=== PATIENT | female | born 1975 | race Caucasian/White ===

== ENCOUNTER 2017-03-19 09:37 | Emergency (ER) | payer OTHER ==
[~2017-03-19] VITALS: Ht 170.2 cm; Wt 70.1 kg
[~2017-03-19 09:37] MED LIST: OMEP40CA41 PO; QUET-205 PO; VENL100T2 PO
[2017-03-19 09:40] VITALS: TEMP 36.6; Ht 170.2 cm; Wt 70.1 kg
[2017-03-19] MEDS ORDERED: PROCHLORPERAZINE 5 MG/ML 2 ML VIAL IV STA (09:51)
[2017-03-19] MEDS ORDERED: DiphenhydrAMINE HCL 50 MG/ML VIAL IV STA (09:51)
[2017-03-19] MEDS ORDERED: SODIUM CHLORIDE 0.9% 1000ML 1,000 ML IV STA (09:51)
[2017-03-19] MEDS ORDERED: KETOROLAC TROMETHAMINE 30 MG/ML VIAL IV STA (09:51)
--- NOTE | 2017-03-19 09:56 | EMERGENCY ROOM VISIT NOTE ---
History Report prepared by Colin: Kaelyn Oneal Under the Supervision of: Dr. Andrei Mathur M.D. First contact with patient: 09:46 Chief Complaint: GI ASSESSMENT Stated Complaint: POSSIBLE BOWEL OBSTRUCTION, MIGRAINE History of Present Illness The patient is a 41 year old female who presents to the Emergency Room with complaints of persistent abdominal pain that began two weeks ago. She currently rates her discomfort as a 7/10 in severity. The patient additionally notes abdominal distension, abdominal bloating, and nausea with her symptoms. She states that this has happened in the past, but denies any specific cause for her flair ups. The patient states that she has not had a significant bowel movement in several weeks. She notes epigastric pain with her symptoms today. The patient states that a few days ago she developed a headache, noting that she rarely gets headaches. She denies taking anything for her pain today. The patient states that she consulted her PCP today and was told to come to the emergency department for further work up. She additionally notes that over the past several weeks she had walking pneumonia and was on 2 rounds of steroids. The patient states that gluten can sometimes cause her symptoms, noting that she has been under a gluten free diet. She states that she has a history of a cholecystectomy. The patient denies any fever. Source of History: patient Onset: two weeks ago Position: abdomen Symptom Intensity: 7/10 Timing: other (persistent) Modifying Factors (Worsening): other (gluten) Associated Symptoms: + headache, + nausea, No fevers Note: Associated symptoms: abdominal distension, abdominal bloating Review of Systems See HPI for pertinent positives & negatives. A total of 10 systems reviewed and were otherwise negative. Past Medical & Surgical Medical Problems: (1) Acute Cholecystitis (2) Bipolar Disorder, Unspecified (3) Ca In Situ Cervix Uteri (4) Cervical High Risk Human Papillomavirus (Hpv) Dna Test Pos (5) Cholecystectomy (6) Migraine Unspecified W/O Intract Mgrn W/O Status Migrainosus (7) Pneumonia, Organism Nos Family History No significant family history Social History Smoking Status: Never Smoker Alcohol Use: none Drug Use: none Marital Status: Housing Status: lives with family Occupation Status: employed Current/Historical Medications Scheduled Omeprazole (Prilosec), 40 MG PO DAILY Quetiapine Fumarate (Seroquel), 200 MG PO HS Venlafaxine Hcl (Effexor), 150 MG PO DAILY Allergies Coded Allergies: Hydromorphone (Verified Allergy, Severe, SHOCK.ITCHING, 09/19/16) Morphine (Verified Allergy, Intermediate, HIVES-CAN TAKE TYL #3 W/O RXN, 09/19/16) Nitrofurantoin (Verified Allergy, Unknown, MACROBID, 09/19/16) Sulfa Drugs (Verified Adverse Reaction, Mild, GI INTOLERANCE, 09/19/16) Physical Exam Vital Signs Date Time Temp Pulse Resp B/P Pulse Ox O2 Delivery O2 Flow Rate FiO2 03/19/17 11:23 83 109/72 99 03/19/17 09:40 36.6 94 18 144/100 98 Room Air Physical Exam GENERAL: Patient is well appearing and in mild distress. HEENT: No acute trauma, normocephalic atraumatic, mucous membranes moist, no nasal congestion, no scleral icterus. NECK: No stridor, no adenopathy, no meningismus, trachea is midline. LUNGS: No dyspnea. Clear to auscultation and equal bilaterally. No wheeze, no rhonchi. HEART: Regular rate and rhythm. No murmurs, rubs, gallops appreciated. ABDOMEN: Variably reproducible abdominal pain. Soft, bowel sounds positive, no masses appreciated, no peritonitis. BACK: No midline tenderness, no CVA tenderness EXTREMITIES: Normal motion all extremities, no cyanosis, no edema. NEUROLOGIC: Alert and oriented, no acute motor or sensory deficits, no focal weakness, cranial nerves grossly intact. SKIN: No rash, no jaundice, no diaphoresis. Medical Decision & Procedures ER Provider Diagnostic Interpretation: X ray results are stated below per my interpretation and the radiologist's interpretation. ABDOMEN 2VIEW W/PA CHEST RTN CLINICAL HISTORY: 2 weeks abdominal distension and discomfort COMPARISON STUDY: Chest x-ray dated 09/19/2016 FINDINGS: The erect chest reveals no free intraperitoneal air. There is no focal pulmonary consolidation. Erect and supine views the abdomen reveal surgical clips within the right upper quadrant consistent with a prior cholecystectomy. An IUD is visualized in the pelvis. There are no transition zones indicate bowel obstruction. There are scattered nonspecific air-fluid levels. IMPRESSION: No evidence of bowel obstruction. No evidence of free air. Electronically signed by: Kelvin Fajardo M.D. 03/19/2017 10:55 AM Dictated Date/Time: 03/19/2017 10:54 AM Laboratory Results 03/19/17 09:50 Red Blood Count 4.77, Mean Corpuscular Volume 91.0, Mean Corpuscular Hemoglobin 30.4, Mean Corpuscular Hemoglobin Concent 33.4, Mean Platelet Volume 10.3, Neutrophils (%) (Auto) 48.3, Lymphocytes (%) (Auto) 41.3, Monocytes (%) (Auto) 7.4, Eosinophils (%) (Auto) 2.3, Basophils (%) (Auto) 0.2, Neutrophils # (Auto) 4.29, Lymphocytes # (Auto) 3.66, Monocytes # (Auto) 0.66, Eosinophils # (Auto) 0.20, Basophils # (Auto) 0.02 03/19/17 09:50 Test 03/19/17 09:50 White Blood Count 8.87 K/uL (4.8-10.8) Red Blood Count 4.77 M/uL (4.2-5.4) Hemoglobin 14.5 g/dL (12.0-16.0) Hematocrit 43.4 % (37-47) Mean Corpuscular Volume 91.0 fL (80-100) Mean Corpuscular Hemoglobin 30.4 pg (25-34) Mean Corpuscular Hemoglobin Concent 33.4 g/dl (32-36) Platelet Count 212 K/uL (130-400) Mean Platelet Volume 10.3 fL (7.4-10.4) Neutrophils (%) (Auto) 48.3 % Lymphocytes (%) (Auto) 41.3 % Monocytes (%) (Auto) 7.4 % Eosinophils (%) (Auto) 2.3 % Basophils (%) (Auto) 0.2 % Neutrophils # (Auto) 4.29 K/uL (1.4-6.5) Lymphocytes # (Auto) 3.66 K/uL (1.2-3.4) Monocytes # (Auto) 0.66 K/uL (0.11-0.59) Eosinophils # (Auto) 0.20 K/uL (0-0.5) Basophils # (Auto) 0.02 K/uL (0-0.2) RDW Standard Deviation 47.5 fL (36.4-46.3) RDW Coefficient of Variation 14.2 % (11.5-14.5) Immature Granulocyte % (Auto) 0.5 % Immature Granulocyte # (Auto) 0.04 K/uL (0.00-0.02) Urine Color YELLOW Urine Appearance CLEAR (CLEAR) Urine pH 5.0 (4.5-7.5) Urine Specific [place] 1.011 (1.000-1.030) Urine Protein NEG (NEG) Urine Glucose (UA) NEG (NEG) Urine Ketones NEG (NEG) Urine Occult Blood 2+ (NEG) Urine Nitrite NEG (NEG) Urine Bilirubin NEG (NEG) Urine Urobilinogen NEG (NEG) Urine Leukocyte Esterase NEG (NEG) Urine WBC (Auto) 1-5 /hpf (0-5) Urine RBC (Auto) 0-4 /hpf (0-4) Urine Hyaline Casts (Auto) 1-5 /lpf (0-5) Urine Epithelial Cells (Auto) 20-30 /lpf (0-5) Urine Bacteria (Auto) NEG (NEG) Urine Test NEG (NEG) Anion Gap 7.0 mmol/L (3-11) Est Creatinine Clear Calc Drug Dose 88.7 ml/min Estimated GFR () 103.7 Estimated GFR (Non- 89.5 BUN/Creatinine Ratio 12.9 (10-20) Calcium Level 8.5 mg/dl (8.5-10.1) Total Bilirubin 0.6 mg/dl (0.2-1) Direct Bilirubin 0.1 mg/dl (0-0.2) Aspartate Amino Transf (AST/SGOT) 22 U/L (15-37) Alanine Aminotransferase (ALT/SGPT) 42 U/L (12-78) Alkaline Phosphatase 55 U/L (45-117) Troponin I < 0.015 ng/ml (0-0.045) C-Reactive Protein < 0.29 mg/dl (0-0.29) Total Protein 7.1 gm/dl (6.4-8.2) Albumin 3.8 gm/dl (3.4-5.0) Lipase 146 U/L (73-393) Laboratory results as reviewed by me. Medications Administered Medications (Trade) Dose Ordered Sig/Carmela Route Start Time Stop Time Status Last Admin Dose Admin Ketorolac Tromethamine (Toradol Inj) 30 mg NOW STAT IV 03/19/17 09:51 03/19/17 09:53 DC 4/20/17 10:16 30 MG Prochlorperazine Edisylate (Compazine Inj) 10 mg NOW STAT IV 03/19/17 09:51 03/19/17 09:53 DC 03/19/17 10:16 10 MG Diphenhydramine HCl 50 mg 50 mg NOW STAT IV 03/19/17 09:51 03/19/17 09:53 DC 03/19/17 10:16 50 MG Sodium Chloride (Nss 1000ml) 1,000 ml @ 999 mls/hr Q1H1M STAT IV 03/19/17 09:51 03/19/17 10:51 DC 03/19/17 10:16 999 MLS/HR Magnesium Citrate (Citrate Of Magnesia Soln) 296 ml NOW ONCE PO 03/19/17 11:15 03/19/17 11:16 DC 03/19/17 11:22 296 ML ECG Indication: abdominal pain Rate (beats per minute): 89 Rhythm: normal sinus Findings: no acute ischemic change, no ectopy ED Course 0947: The patient was evaluated in room B12B. A complete history and physical exam was performed. 0951: Ordered Sodium Chloride 1000 ml @ 999 mls/hr IV, Benadryl Inj 50 mg IV, Compazine Inj 10 mg IV, Toradol Inj 30 mg IV. 1109: I reevaluated the patient and she is doing better. I discussed the risks and benefits of magnesium citrate and she would like to try it. I discussed all the exam findings with her and I discussed the treatment plan. She verbalized complete understanding and agreement. She is ready to go home. 1115: Ordered Magnesium Citrate 296 ml PO. Medical Decision Differential: Cholecystitis, Gallbladder disfunction, Hepatic Disfunction, Gastritis/PUD, Pancreatitis, ACS, Aortic Pathology, amongst other pathologies entertained. Differential: Headache, Migraine, Cluster Headache, Seizure, Meningitis, Sinusitis, CO exposure, ICH/SAH, Infectious, Tumor, Sinus Thrombosis, Arterial Dissection, amongst other pathologies entertained. 41 yr old female arrives with dual complaints of headache and abdominal discomfort. Headache: 3 days, gradually worsening. No meningitis by exam. No encephalitis. Admits history of headaches. No neuro deficits nor fevers. Exam benign. No recent trauma. Resolved with above medications. Abdo: Discomfort. Minimal bowel movements last week. No vomiting, no fevers, no TTP. Stable and in no distress after above. With 2 weeks of discomfort, completely normal labs, and normal obstruc series I do not feel that CT indicated and as pain is gone I feel further monitoring as outpatient reasonable. RTED if worsening ro toher concerns. Stressed PCP follow up. Impression Primary Impression: Constipation Additional Impression: Headache Scribe Attestation The scribe's documentation has been prepared under my direction and personally reviewed by me in its entirety. I confirm that the note above accurately reflects all work, treatment, procedures, and medical decision making performed by me. Departure Information Dispostion Home / Self-Care Referrals Cale Jackson M.D. (PCP) Forms HOME CARE DOCUMENTATION FORM, IMPORTANT VISIT INFORMATION Patient Instructions ED Constipation, My [facility] Additional Instructions Magnesium Citrate: Take half when home, then second half this evening if no improvement in constipation. You have received a sedative pain medication. These medications may cause drowsiness and should not be used with other sedative medications. Do not drive , drink alcohol, perform dangerous activities, nor make important decisions after taking these medications. Problem Qualifiers Primary Impression: Constipation Constipation type: unspecified constipation type Qualified Codes: K59.00 - Constipation, unspecified Additional Impression: Headache Headache type: unspecified Headache chronicity pattern: acute headache Intractability: not intractable Qualified Codes: R51 - Headache
[2017-03-19 10:04] LABS: BASO % 0.2 %; BASO ABS # 0.02 K/uL (0-0.2); COMPLETE YES; EOS % 2.3 %; HEMATOCRIT 43.4 % (37-47); IG% 0.5 %; LYMPH % 41.3 %; LYMPH ABS # 3.66 K/uL (1.2-3.4); MEAN CORPUSCULAR HEMOGLOBIN 30.4 pg (25-34); MEAN CORPUSCULAR HGB CONC 33.4 g/dl (32-36); MEAN PLATELET VOLUME 10.3 fL (7.4-10.4); MONO % 7.4 %; NEUT % 48.3 %; PLATELET COUNT 212 K/uL (130-400); RED BLOOD COUNT 4.77 M/uL (4.2-5.4); WHITE BLOOD COUNT 8.87 K/uL (4.8-10.8)
[2017-03-19 10:20] LABS: URINE APPEARANCE CLEAR (CLEAR); URINE BILIRUBIN NEG (NEG); URINE COLOR YELLOW; URINE EPITHELIAL CELL AUTO 20-30 /lpf (0-5); URINE NITRITE NEG (NEG); URINE SPECIFIC GRAVITY 1.011 (1.000-1.030); UROBILINOGEN NEG (NEG); ZZUR CULT IF INDIC CLEAN CATCH NO
[2017-03-19 10:28] LABS: MANUAL MICROSCOPIC REQUIRED? NO; REVIEW REQ? NO
[2017-03-19 10:31] LABS: ALKALINE PHOSPHATASE 55 U/L (45-117); ALT/SGPT 42 U/L (12-78); AST/SGOT 22 U/L (15-37); BLOOD UREA NITROGEN 11 mg/dl (7-18); BUN/CREATININE RATIO 12.9 (10-20); C-REACTIVE PROTEIN < 0.29 mg/dl (0-0.29); CALCIUM 8.5 mg/dl (8.5-10.1); CARBON DIOXIDE 30 mmol/L (21-32); CHLORIDE 104 mmol/L (98-107); CREATININE 0.82 mg/dl (0.60-1.20); GLUCOSE 77 mg/dl (70-99); POTASSIUM 3.5 mmol/L (3.5-5.1); SODIUM 141 mmol/L (136-145)
--- NOTE | 2017-03-19 10:57 | DIAGNOSTIC IMAGING REPORT ---
ABDOMEN 2VIEW W/PA CHEST RTN CLINICAL HISTORY: 2 weeks abdominal distension and discomfort COMPARISON STUDY: Chest x-ray dated 09/19/2016 FINDINGS: The erect chest reveals no free intraperitoneal air. There is no focal pulmonary consolidation. Erect and supine views the abdomen reveal surgical clips within the right upper quadrant consistent with a prior cholecystectomy. An IUD is visualized in the pelvis. There are no transition zones indicate bowel obstruction. There are scattered nonspecific air-fluid levels. IMPRESSION: No evidence of bowel obstruction. No evidence of free air. Electronically signed by: Kelvin Fajardo M.D. 03/19/2017 10:55 AM Dictated Date/Time: 03/19/2017 10:54 AM
[2017-03-19] MEDS ORDERED: MAGNESIUM CITRATE 296 ML/BTL PO ONE (11:15)
[2017-03-19 11:23] VITALS: BP 109/72; PULSE 83; O2SAT 99
== END 2017-03-19 11:43 | disposition home or self-care (01) ==
LOC: C.EDB 09:38
DX: K59.00 Constipation, unspecified (principal); R51 Headache; F31.9 Bipolar disorder, unspecified; Z87.410 Personal history of cervical dysplasia; Z87.19 Personal history of other diseases of the digestive system; Z90.49 Acquired absence of other specified parts of digestive tract; Z79.899 Other long term (current) drug therapy; Z88.2 Allergy status to sulfonamides; Z88.5 Allergy status to narcotic agent; Z88.8 Allergy status to other drugs, medicaments and biological substances

== ENCOUNTER → 2017-05-29 | Outpatient (CLI) | payer OTHER ==
[~2017-05-29] MED LIST changes: +DICY1TAB25 PO; +EFFSR150 PO; +LINA1CAP PO
[2017-05-29 10:30] LABS: BASO % 0.7 %; BASO ABS # 0.05 K/uL (0-0.2); COMPLETE YES; EOS % 3.4 %; HEMATOCRIT 38.5 % (37-47); IG% 0.1 %; LYMPH % 22.6 %; LYMPH ABS # 1.66 K/uL (1.2-3.4); MEAN CELL VOLUME 86.7 fL (80-100); MEAN CORPUSCULAR HEMOGLOBIN 29.5 pg (25-34); MEAN PLATELET VOLUME 10.2 fL (7.4-10.4); MONO % 10.3 %; NEUT % 62.9 %; PLATELET COUNT 190 K/uL (130-400); RED BLOOD COUNT 4.44 M/uL (4.2-5.4); WHITE BLOOD COUNT 7.36 K/uL (4.8-10.8)
[2017-05-29 10:56] LABS: CALCIUM 9.3 mg/dl (8.5-10.1)
[2017-05-29 10:57] LABS: ALT/SGPT 20 U/L (12-78); AST/SGOT 18 U/L (15-37); BLOOD UREA NITROGEN 11 mg/dl (7-18); BUN/CREATININE RATIO 15.6 (10-20); CARBON DIOXIDE 30 mmol/L (21-32); CHLORIDE 106 mmol/L (98-107); CREATININE 0.68 mg/dl (0.60-1.20); GLUCOSE 87 mg/dl (70-99); SODIUM 140 mmol/L (136-145)
[2017-05-29 11:08] LABS: ALB/GLOB RATIO 1.2 (0.9-2); ALKALINE PHOSPHATASE 44 U/L (45-117); CHOLESTEROL 173 mg/dl (0-200); CHOLESTEROL/HDL RATIO 2.4; HDL CHOLESTEROL 72 mg/dl; LDL CHOLESTEROL CALCULATED 90 mg/dl; THYROID STIMULATING HORMONE 0.861 uIu/ml (0.300-4.500); TRIGLYCERIDES 56 mg/dl (0-150); VERY LOW DENSITY LIPOPROT CALC 11 mg/dl
== END | disposition home or self-care (01) ==
LOC: C.LAB 09:55
PROVIDERS: ATTEND Physician Assistant
DX: Z79.899 Other long term (current) drug therapy (principal)

== ENCOUNTER 2017-08-27 20:05 | Emergency (ER) | payer OTHER ==
[~2017-08-27] VITALS: Ht 170.2 cm; Wt 68.5 kg
[~2017-08-27 20:05] MED LIST changes: -DICY1TAB25 PO; -EFFSR150 PO; -LINA1CAP PO
[2017-08-27 20:19] VITALS: TEMP 36.6; Ht 170.2 cm; Wt 68.5 kg
[2017-08-27] MEDS ORDERED: LINA1CAP PO (20:28)
[2017-08-27] MEDS ORDERED: EFFSR150 PO (20:28)
[2017-08-27] MEDS ORDERED: DICY1TAB25 PO (20:28)
--- NOTE | 2017-08-27 20:37 | EMERGENCY ROOM VISIT NOTE ---
History First contact with patient: 20:20 Chief Complaint: VOMITING Stated Complaint: ABD PAIN Nursing Triage Summary: Patient reports she woke up this morning with nausea and abdominal pain. Went to work and began vomiting, was sent home and has continued to vomit all day. Patient saw her GI doctor last week and was told to do a bowel cleanse of 4 scoops of miralax in 32 oz gatorade. Patient did that and approx 2 hours ago had a very large BM and is now having abdominal cramping. Patient is hyperventilating upon arrival to ED. Patient reports tingling in arms and fingers. Instructed to slow breathing down by taking slow deep breaths and holding it. History of Present Illness The patient is a 41 year old female who presents to the Emergency Room with complaints of nausea, vomiting, and diarrhea since this morning. The patient state "I must have IBS or something". She is very frantic and emotional when stating the events of today. She states that she saw her GI doctor last week who told her to take 4 cups of Miralax as a bowel cleanse and since she did that approximately 2 hours ago she has had constant pain, nausea, and vomiting. She also took 1 Bentyl this morning and 2 Bentyl this evening. The patient complained of right lower extremity numbness below the knee. She also has had numbness and tingling in both arms. She denies any blood in her vomit or bowel movements. When asked if the patient has a history of abdominal pain she states "never like this". Review of Systems See HPI for pertinent positives and negatives. A total of ten systems were reviewed and were otherwise negative. Past Medical/Surgical History Medical Problems: (1) Acute Cholecystitis (2) Bipolar Disorder, Unspecified (3) Ca In Situ Cervix Uteri (4) Cervical High Risk Human Papillomavirus (Hpv) Dna Test Pos (5) Cholecystectomy (6) Migraine Unspecified W/O Intract Mgrn W/O Status Migrainosus (7) Pneumonia, Organism Nos Family History No significant family history Social History Smoking Status: Never Smoker Alcohol Use: none Drug Use: none Marital Status: Housing Status: lives with family Occupation Status: employed Current/Historical Medications Scheduled Linaclotide (Linzess), 145 MCG PO DAILY Omeprazole (Prilosec), 40 MG PO DAILY Quetiapine Fumarate (Seroquel), 200 MG PO HS Venlafaxine Hcl (Effexor Extended Rel), 150 MG PO DAILY Scheduled PRN Dicyclomine HCl (Dicyclomine HCl), 20 MG PO QID PRN for Constipation Physical Exam Vital Signs Date Time Temp Pulse Resp B/P (MAP) Pulse Ox O2 Delivery O2 Flow Rate FiO2 08/27/17 23:56 92 18 103/63 97 Room Air 08/27/17 22:28 92 16 110/64 99 Room Air 08/27/17 20:19 36.6 131 30 119/81 100 Room Air Physical Exam GENERAL: Awake, alert, hyperventilating, tearful, in moderate distress HENT: Normocephalic, atraumatic. Oropharynx unremarkable. EYES: Normal conjunctiva. Sclera non-icteric. NECK: Supple. No nuchal rigidity. FROM. No JVD. RESPIRATORY: Clear to auscultation. CARDIAC: Regular rate, normal rhythm. Extremities warm and well perfused. Pulses equal. ABDOMEN: Patient jumped off the bed when attempting to examine the abdomen and would not allow for palpation RECTAL: Deferred. MUSCULOSKELETAL: Chest examination reveals no tenderness. The back is symmetrical on inspection without obvious abnormality. LOWER EXTREMITIES: Calves are equal size bilaterally and non-tender. No edema. No discoloration. DP and PT pulses 2+. NEURO: Very emotional and tearful. Alert & Oriented SKIN: No rash or jaundice noted. Medical Decision & Procedures Laboratory Results 08/27/17 21:00 Red Blood Count 4.69, Mean Corpuscular Volume 85.9, Mean Corpuscular Hemoglobin 30.3, Mean Corpuscular Hemoglobin Concent 35.2, Mean Platelet Volume 10.8, Neutrophils (%) (Auto) 82.3, Lymphocytes (%) (Auto) 10.7, Monocytes (%) (Auto) 5.8, Eosinophils (%) (Auto) 0.6, Basophils (%) (Auto) 0.3, Neutrophils # (Auto) 9.89, Lymphocytes # (Auto) 1.28, Monocytes # (Auto) 0.69, Eosinophils # (Auto) 0.07, Basophils # (Auto) 0.03 08/27/17 21:00 Test 08/27/17 21:00 White Blood Count 11.99 K/uL (4.8-10.8) Red Blood Count 4.69 M/uL (4.2-5.4) Hemoglobin 14.2 g/dL (12.0-16.0) Hematocrit 40.3 % (37-47) Mean Corpuscular Volume 85.9 fL (80-100) Mean Corpuscular Hemoglobin 30.3 pg (25-34) Mean Corpuscular Hemoglobin Concent 35.2 g/dl (32-36) Platelet Count 241 K/uL (130-400) Mean Platelet Volume 10.8 fL (7.4-10.4) Neutrophils (%) (Auto) 82.3 % Lymphocytes (%) (Auto) 10.7 % Monocytes (%) (Auto) 5.8 % Eosinophils (%) (Auto) 0.6 % Basophils (%) (Auto) 0.3 % Neutrophils # (Auto) 9.89 K/uL (1.4-6.5) Lymphocytes # (Auto) 1.28 K/uL (1.2-3.4) Monocytes # (Auto) 0.69 K/uL (0.11-0.59) Eosinophils # (Auto) 0.07 K/uL (0-0.5) Basophils # (Auto) 0.03 K/uL (0-0.2) RDW Standard Deviation 40.1 fL (36.4-46.3) RDW Coefficient of Variation 12.7 % (11.5-14.5) Immature Granulocyte % (Auto) 0.3 % Immature Granulocyte # (Auto) 0.03 K/uL (0.00-0.02) Anion Gap 7.0 mmol/L (3-11) Est Creatinine Clear Calc Drug Dose 90.9 ml/min Estimated GFR () 106.9 Estimated GFR (Non- 92.2 BUN/Creatinine Ratio 12.3 (10-20) Calcium Level 9.6 mg/dl (8.5-10.1) Magnesium Level 1.7 mg/dl (1.8-2.4) Total Bilirubin 0.5 mg/dl (0.2-1) Direct Bilirubin 0.1 mg/dl (0-0.2) Aspartate Amino Transf (AST/SGOT) 23 U/L (15-37) Alanine Aminotransferase (ALT/SGPT) 20 U/L (12-78) Alkaline Phosphatase 58 U/L (45-117) Total Protein 7.7 gm/dl (6.4-8.2) Albumin 4.3 gm/dl (3.4-5.0) Lipase 121 U/L (73-393) Medications Administered Medications (Trade) Dose Ordered Sig/Carmela Route Start Time Stop Time Status Last Admin Dose Admin Sodium Chloride 1,000 ml @ 999 mls/hr Q1H1M STAT IV 08/27/17 20:45 08/27/17 21:45 DC 08/27/17 21:00 999 MLS/HR Pantoprazole Sodium 40 mg/ Syringe 10 ml @ 5 mls/min NOW ONCE IV 08/27/17 20:45 08/27/17 20:50 DC 08/27/17 21:32 5 MLS/MIN Ondansetron HCl (Zofran Inj) 4 mg NOW STAT IV 08/27/17 20:45 08/27/17 20:50 DC 08/27/17 21:31 4 MG Ketorolac Tromethamine (Toradol Inj) 30 mg NOW STAT IV. 08/27/17 20:45 08/27/17 20:50 DC 08/27/17 21:31 30 MG Dicyclomine HCl (Bentyl Tab) 20 mg NOW STAT PO 08/27/17 21:07 08/27/17 21:09 DC 08/27/17 21:31 20 MG Magnesium Sulfate (Magnesium Sulfate) 1 gm NOW STAT IV 08/27/17 22:04 08/27/17 22:19 DC 08/27/17 22:28 1 GM Ondansetron HCl (ZOFRAN ODT 4MG Home Pack) 1 athenspack K-MED ONCE .ROUTE 08/28/17 00:08 08/28/17 00:09 DC 08/28/17 00:08 1 HOMEPACK ED Course Patient presents with a 2 hour history of abdominal pain, nausea, and vomiting after starting a bowel prep - Patient very tearful and in moderate distress on exam - Lab work ordered: CBC, BMP, LFT, Lipase, Magnesium - Imaging ordered: Abdominal X-Ray - Medications: Zofran 4mg IV, Toradol 30mg IV, Protonix 40mg IV 9:35pm: Patient had large bowel movement and feeling significantly better Medical Decision Patient is a 41 year old female that presented to the ED with a 2 hour history of nausea, vomiting, diarrhea and abdominal pain Etiologies such as abdominal cramping, appendicitis, diverticulitis, obstruction, inflammatory bowel disease, renal colic, PUD, biliary pathology, pancreatitis, mesenteric ischemia, infections, genitourinary, UTI, perforated viscus, as well as others were entertained. The patient was in significant distress on initial evaluation most likely secondary to bowel cleanout she had taken earlier. The patient was started on Protonix, Toradol, Bentyl, and Zofran. The patient subsequently had a large bowel movement and felt significantly better. The patient denied any further cramping or abdominal pain. Impression Primary Impression: Nausea, vomiting, and diarrhea Departure Information Dispostion Home / Self-Care Condition GOOD Referrals Cale Jackson M.D. (PCP) Patient Instructions My [facility] Additional Instructions ABDOMINAL PAIN INSTRUCTIONS: Ibuprofen(Motrin, Advil) may be used for fever or pain. Use 600mg every six hours as needed. Take with food. Avoid using more than 2400mg in a 24 hour period. Do not use 2400mg per day for more than three consecutive days without physician direction. Prolonged inappropriate use can lead to stomach upset or ulcers. (AND/OR) Acetaminophen(Tylenol) may be used for fever or pain. Use 1000mg every six hours as needed. Avoid using more than 4000mg in a 24 hour period. Zofran tablets 4mg: Take one every six hours as needed for nausea. Rest and drink plenty of fluids as tolerated. Slow sips of water or sports drinks are recommended instead of large amounts all at once. Continue current medications. Once your stomach is settled start with a clear liquid diet (jello, soup broth, etc.) and then advance as tolerated. You should avoid full, heavy meals for about 24 hrs from the time your symptoms resolved. Return to the emergency department in 8-12 hours for reevaluation or sooner if the pain worsens, migrates to the right lower part of your abdomen, vomiting occurs, or you feel it necessary. Return to the ER immediately for worsening or persistent abdominal pain, vomiting, fevers, chest pains, difficulty breathing, black or bloody stools, worsening of your condition, or as needed. Follow up with your primary physician in 2-3 days for a recheck of your current condition. Resident Tracking Resident Involvement: Resident Care Provided Care Provided: Adult ED
[2017-08-27] MEDS ORDERED: SODIUM CHLORIDE 0.9% 1000ML 1,000 ML IV STA (20:45)
[2017-08-27] MEDS ORDERED: PANTOprazole INJ 40 MG in SYRINGE 0 ML IV ONE (20:45)
[2017-08-27] MEDS ORDERED: KETOROLAC TROMETHAMINE 30 MG/ML VIAL IV. STA (20:45)
[2017-08-27] MEDS ORDERED: ONDANSETRON INJ 2 MG/ML 2 ML VIAL IV STA (20:45)
[2017-08-27] MEDS ORDERED: DICYCLOMINE HCL 20 MG TAB PO STA (21:07)
--- NOTE | 2017-08-27 21:07 | EMERGENCY ROOM VISIT NOTE ---
ED Visit Note First contact with patient: 20:07 Resident Physician Supervision Note: I was present with Dr. Restrepo during the history and exam. I discussed the case with the resident and agree with the findings and plan as documented in the note. Documented By: Bin iLn
[2017-08-27 21:36] LABS: BASO % 0.3 %; BASO ABS # 0.03 K/uL (0-0.2); COMPLETE YES; EOS % 0.6 %; HEMATOCRIT 40.3 % (37-47); IG% 0.3 %; LYMPH % 10.7 %; LYMPH ABS # 1.28 K/uL (1.2-3.4); MEAN CELL VOLUME 85.9 fL (80-100); MEAN CORPUSCULAR HEMOGLOBIN 30.3 pg (25-34); MEAN CORPUSCULAR HGB CONC 35.2 g/dl (32-36); MEAN PLATELET VOLUME 10.8 fL (7.4-10.4); MONO % 5.8 %; NEUT % 82.3 %; PLATELET COUNT 241 K/uL (130-400); RED BLOOD COUNT 4.69 M/uL (4.2-5.4); WHITE BLOOD COUNT 11.99 K/uL (4.8-10.8)
[2017-08-27 21:59] LABS: BUN/CREATININE RATIO 12.3 (10-20); CALCIUM 9.6 mg/dl (8.5-10.1); CREATININE 0.8 mg/dl (0.60-1.20); MAGNESIUM 1.7 mg/dl (1.8-2.4)
[2017-08-27] MEDS ORDERED: MAGNESIUM SULFATE 1GM / D5W 1 GM BAG IV STA (22:04)
--- NOTE | 2017-08-27 22:30 | DIAGNOSTIC IMAGING REPORT ---
CHEST AND ABDOMEN 2 VIEWS HISTORY: Generalized abdominal pain. COMPARISON: Chest and abdominal series 03/19/2017. FINDINGS: The lungs are clear. The cardiomediastinal silhouette is within normal limits. There is no pneumoperitoneum or pneumatosis. The bowel gas pattern is unremarkable. No evidence for bowel obstruction. No renal or ureteral calculi. Cholecystectomy. An intrauterine device is noted within the deep pelvis. This is unchanged in position. A few scattered nondilated gas-filled loops of large and small bowel are seen throughout the abdomen. This is similar to the prior study. IMPRESSION: No acute cardiopulmonary process. No evidence for bowel obstruction. No change from the prior studies. Electronically signed by: Les Liz M.D. 08/27/2017 10:29 PM Dictated Date/Time: 08/27/2017 10:27 PM
[2017-08-27 23:56] VITALS: BP 103/63; PULSE 92; O2SAT 97
[2017-08-28] MEDS ORDERED: ONDANSETRON HOME PACK 4MG OD TAB ONE (00:08)
[2017-08-28] MEDS ORDERED: ONDANSETRON HOME PACK 4MG OD TAB PO ONE (00:15)
== END 2017-08-28 00:13 | disposition home or self-care (01) ==
LOC: EDBD 20:05 → C.EDB 20:07
DX: R11.2 Nausea with vomiting, unspecified (principal); R19.7 Diarrhea, unspecified; F31.9 Bipolar disorder, unspecified; G43.909 Migraine, unspecified, not intractable, without status migrainosus; Z87.01 Personal history of pneumonia (recurrent); Z79.899 Other long term (current) drug therapy

== ENCOUNTER 2018-03-24 15:14 | Emergency (ER) | payer OTHER ==
[~2018-03-24] VITALS: Ht 350.5 cm; Wt 71.7 kg
[~2018-03-24 15:14] MED LIST changes: +DICY1TAB25 PO; +EFFSR150 PO; +LINA1CAP PO; -VENL100T2 PO
[2018-03-24 15:16] VITALS: TEMP 36.7; Ht 350.5 cm; Wt 71.7 kg
[2018-03-24] MEDS ORDERED: SODIUM CHLORIDE 0.9% 1000ML 1,000 ML IV ONE (16:00)
[2018-03-24] MEDS ORDERED: ONDANSETRON INJ 2 MG/ML 2 ML VIAL IV PRN (16:00)
--- NOTE | 2018-03-24 16:13 | EMERGENCY ROOM VISIT NOTE ---
History First contact with patient: 15:35 Chief Complaint: CHEST PAIN Stated Complaint: CHEST PAIN,NAUSEA,SWEATING,NUMBNESS Nursing Triage Summary: MID STERNAL CHEST P[AIN LASTED 30 MINS AFTER LUNCH History of Present Illness The patient is a 42 year old female who presents to the Emergency Room with complaints of an episode of diaphoresis and chest pain that started approximately 1 hour ago. Her symptoms lasted 30 minutes. She also was severely nauseated. She did not have any vomiting. She denies any headache. She reports the pain as a stabbing sensation in the center of her chest. It does not radiate anywhere. It is worse with deep inspiration. She also reports a numbness in her right arm, again lasting approximately 30 minutes. No recent medication changes. She does not have history of diabetes. She reports eating and drinking normally today. The patient has a history of IBS. She has not had a bowel movement in several days. No headache, slurred speech or confusion reported. Review of Systems 10 system review performed and negative unless noted in HPI or below Past Medical/Surgical History Medical Problems: (1) Acute Cholecystitis (2) Bipolar Disorder, Unspecified (3) Ca In Situ Cervix Uteri (4) Cervical High Risk Human Papillomavirus (Hpv) Dna Test Pos (5) Cholecystectomy (6) Migraine Unspecified W/O Intract Mgrn W/O Status Migrainosus (7) Pneumonia, Organism Nos Family History No significant family history Social History Smoking Status: Never Smoker Alcohol Use: none Drug Use: none Marital Status: Housing Status: lives with family Occupation Status: employed Current/Historical Medications Scheduled Docusate Sodium (Colace), 100 MG PO BID Linaclotide (Linzess), 145 MCG PO DAILY Omeprazole (Prilosec), 40 MG PO DAILY Quetiapine Fumarate Xr (Seroquel Xr), 200 MG PO HS Venlafaxine Hcl (Effexor Extended Rel), 150 MG PO DAILY Scheduled PRN Dicyclomine HCl (Dicyclomine HCl), 20 MG PO QID PRN for Constipation Physical Exam Vital Signs Date Time Temp Pulse Resp B/P (MAP) Pulse Ox O2 Delivery O2 Flow Rate FiO2 03/24/18 18:55 80 16 130/87 99 03/24/18 17:49 79 16 126/84 100 78 141/80 78 130/87 03/24/18 17:23 90 16 117/89 100 Room Air 03/24/18 16:17 87 03/24/18 15:51 100 Room Air 03/24/18 15:16 36.7 88 16 125/85 99 Room Air Physical Exam VITALS: Vitals are noted on the nurse's note and reviewed by myself. Vital signs stable. GENERAL: 42-year-old female, anxious in appearance,, SKIN: The skin was without rashes, erythema, edema, or bruising. HEAD: Normocephalic atraumatic. EYES: Extraocular muscles intact. PERRL MOUTH: Mucous membranes fairly dry NECK: Supple without nuchal rigidity. No lymphadenopathy. Cervical spine is nontender. No JVD. HEART: Regular rate and rhythm without murmurs gallops or rubs. LUNGS: Clear to auscultation bilaterally without wheezes, rales or rhonchi. No accessory muscle use. ABDOMEN: Positive bowel sounds x 4.Soft, mild tenderness to palpation in the right upper quadrant without organomegaly. No guarding or rebound tenderness. MUSCULOSKELETAL: No muscle atrophy, erythema, or edema noted. Strength 5/5 throughout. NEURO: Patient was alert and oriented to person place and time. Cerebellar function intact. Cranial nerves grossly intact. Negative Romberg. Normal sensation to touch. No focal neurological deficits. Medical Decision & Procedures ER Provider Diagnostic Interpretation: CT head w/o contrast IMPRESSION: No acute intracranial findings Electronically signed by: Kelvin Fajardo M.D. 03/24/2018 4:36 PM Dictated Date/Time: 03/24/2018 4:35 PM CXR IMPRESSION: No active disease in the chest. Electronically signed by: Kelvin Fajardo M.D. 03/24/2018 5:17 PM Dictated Date/Time: 03/24/2018 5:17 PM The status of this report is Signed. Draft = Not yet reviewed or approved by Radiologist. Signed = Reviewed and approved by Radiologist. Laboratory Results 03/24/18 16:05 Red Blood Count 4.33, Mean Corpuscular Volume 85.7, Mean Corpuscular Hemoglobin 29.8, Mean Corpuscular Hemoglobin Concent 34.8, Mean Platelet Volume 10.4, Neutrophils (%) (Auto) 56.5, Lymphocytes (%) (Auto) 31.0, Monocytes (%) (Auto) 8.1, Eosinophils (%) (Auto) 3.7, Basophils (%) (Auto) 0.5, Neutrophils # (Auto) 3.36, Lymphocytes # (Auto) 1.84, Monocytes # (Auto) 0.48, Eosinophils # (Auto) 0.22, Basophils # (Auto) 0.03 03/24/18 16:05 Test 03/24/18 16:05 03/24/18 16:55 White Blood Count 5.94 K/uL (4.8-10.8) Red Blood Count 4.33 M/uL (4.2-5.4) Hemoglobin 12.9 g/dL (12.0-16.0) Hematocrit 37.1 % (37-47) Mean Corpuscular Volume 85.7 fL (80-100) Mean Corpuscular Hemoglobin 29.8 pg (25-34) Mean Corpuscular Hemoglobin Concent 34.8 g/dl (32-36) Platelet Count 230 K/uL (130-400) Mean Platelet Volume 10.4 fL (7.4-10.4) Neutrophils (%) (Auto) 56.5 % Lymphocytes (%) (Auto) 31.0 % Monocytes (%) (Auto) 8.1 % Eosinophils (%) (Auto) 3.7 % Basophils (%) (Auto) 0.5 % Neutrophils # (Auto) 3.36 K/uL (1.4-6.5) Lymphocytes # (Auto) 1.84 K/uL (1.2-3.4) Monocytes # (Auto) 0.48 K/uL (0.11-0.59) Eosinophils # (Auto) 0.22 K/uL (0-0.5) Basophils # (Auto) 0.03 K/uL (0-0.2) RDW Standard Deviation 41.3 fL (36.4-46.3) RDW Coefficient of Variation 13.2 % (11.5-14.5) Immature Granulocyte % (Auto) 0.2 % Immature Granulocyte # (Auto) 0.01 K/uL (0.00-0.02) Anion Gap 4.0 mmol/L (3-11) Est Creatinine Clear Calc Drug Dose 104.7 ml/min Estimated GFR () 106.1 Estimated GFR (Non- 91.6 BUN/Creatinine Ratio 13.0 (10-20) Calcium Level 9.0 mg/dl (8.5-10.1) Total Bilirubin 0.2 mg/dl (0.2-1) Aspartate Amino Transf (AST/SGOT) 34 U/L (15-37) Alanine Aminotransferase (ALT/SGPT) 26 U/L (12-78) Alkaline Phosphatase 55 U/L (45-117) Troponin I < 0.015 ng/ml (0-0.045) Total Protein 7.0 gm/dl (6.4-8.2) Albumin 3.8 gm/dl (3.4-5.0) Globulin 3.2 gm/dl (2.5-4.0) Albumin/Globulin Ratio 1.2 (0.9-2) Lipase 155 U/L (73-393) Urine Color YELLOW Urine Appearance CLEAR (CLEAR) Urine pH 7.5 (4.5-7.5) Urine Specific [place] 1.011 (1.000-1.030) Urine Protein NEG (NEG) Urine Glucose (UA) NEG (NEG) Urine Ketones NEG (NEG) Urine Occult Blood NEG (NEG) Urine Nitrite NEG (NEG) Urine Bilirubin NEG (NEG) Urine Urobilinogen NEG (NEG) Urine Leukocyte Esterase TRACE (NEG) Urine WBC (Auto) 1-5 /hpf (0-5) Urine RBC (Auto) 0-4 /hpf (0-4) Urine Hyaline Casts (Auto) 0 /lpf (0-5) Urine Epithelial Cells (Auto) 5-10 /lpf (0-5) Urine Bacteria (Auto) NEG (NEG) Urine Test NEG (NEG) Medications Administered Medications (Trade) Dose Ordered Sig/Carmela Route Start Time Stop Time Status Last Admin Dose Admin Sodium Chloride 1,000 ml @ 999 mls/hr Q1H1M ONCE IV 03/24/18 16:00 03/24/18 17:13 DC 03/24/18 16:00 999 MLS/HR Ondansetron HCl (Zofran Inj) 4 mg Q2H PRN IV 03/24/18 16:00 03/24/18 19:33 DC 03/24/18 16:56 4 MG ED Course Patient was seen and examined Vital signs including blood pressure were reviewed medications list was verified with patient Labs were obtained, and a saline lock was established An EKG was performed, the patient was put on a monitor She was hydrated with 1 L of normal saline and medicated with Zofran 4 mg IV The case was discussed with my supervising physician who is in agreement with my plan The patient was reevaluated and feeling much better. She had no further symptoms. We discussed her workup. She was comfortable being discharged home. I reviewed discharge instructions the patient. They voiced understanding and had no further questions. Medical Decision Differential diagnosis: Acute myocardial infarction, cardiac arrhythmia, retained choledocholithiasis, pancreatitis, GERD, gastritis electrolyte imbalance, intracranial abnormality, anxiety/panic attack, This patient is a 42-year-old female presents to the emergency department with an episode of diaphoresis and chest pain that occurred approximately 1 hour prior to arrival. On exam, the patient was anxious in appearance. Her vital signs are stable. She had some mild tenderness in her upper abdomen. The patient has a history of GERD. The patient's workup is fairly unremarkable. There is no leukocytosis. LFTs and lipase are within normal limits. I do not suspect an intra-abdominal abnormality. Her EKG shows normal sinus rhythm with no signs of ischemia or infarction. Her chest x-ray is negative. I ordered a CT of the head, which was also unremarkable. The patient felt much better after fluids and Zofran. there is possibly an anxiety component to her symptoms. I believe she is stable to be discharged home with close follow-up. The patient agrees to return with worsening symptoms. This chart was completed in part utilizing [employer] Speech Voice Recognition software. Attempts were made to minimize the grammatical errors, random word insertions, pronoun errors and incomplete sentences. Any formal questions or concerns about the content, text or information contained within the body of this dictation should be directly addressed to the provider for clarification. Medication Reconcilliation Current Medication List: was personally reviewed by me Blood Pressure Screening Patient's blood pressure: Normal blood pressure Impression Primary Impression: Chest pain Departure Information Dispostion Home / Self-Care Condition GOOD Referrals Cale Jackson M.D. (PCP) Patient Instructions My [facility] Additional Instructions You have been evaluated in the emergency department after an episode of nausea and chest pain. There were no significant abnormalities found in your blood work or EKG today. Please continue current medications as prescribed Try to stay well hydrated. Increase fluids over the next several days. Please follow-up with your primary care physician within the next 24-48 hours for recheck Do not hesitate to return to the emergency department with any new, worsening or concerning symptoms It was a pleasure participating in your care today Work Instructions Return To Work: 1 day
[2018-03-24 16:18] LABS: BASO % 0.5 %; BASO ABS # 0.03 K/uL (0-0.2); EOS % 3.7 %; EOS ABS # 0.22 K/uL (0-0.5); HEMATOCRIT 37.1 % (37-47); HEMOGLOBIN 12.9 g/dL (12.0-16.0); IG# 0.01 K/uL (0.00-0.02); LYMPH ABS # 1.84 K/uL (1.2-3.4); MEAN CELL VOLUME 85.7 fL (80-100); MEAN CORPUSCULAR HEMOGLOBIN 29.8 pg (25-34); MEAN CORPUSCULAR HGB CONC 34.8 g/dl (32-36); MEAN PLATELET VOLUME 10.4 fL (7.4-10.4); MONO % 8.1 %; MONO ABS # 0.48 K/uL (0.11-0.59); NEUT % 56.5 %; NEUT ABS # 3.36 K/uL (1.4-6.5); PLATELET COUNT 230 K/uL (130-400); RED CELL DISTRIBUTION WIDTH CV 13.2 % (11.5-14.5); RED CELL DISTRIBUTION WIDTH SD 41.3 fL (36.4-46.3); WHITE BLOOD COUNT 5.94 K/uL (4.8-10.8)
--- NOTE | 2018-03-24 16:37 | DIAGNOSTIC IMAGING REPORT ---
CT HEAD WITHOUT CONTRAST (CT) CLINICAL HISTORY: Headache, right arm numbness, vomiting. COMPARISON STUDY: 08/19/2011 TECHNIQUE: Axial CT of the brain is performed from the vertex to the skull base. IV contrast was not administered for this examination. A dose lowering technique was utilized adhering to the principles of ALARA. CT DOSE: 638.56 mGycm FINDINGS: No intra or extra-axial mass lesions are visualized. There is no CT evidence of acute cortical infarction. There is no evidence of midline shift. There is no acute hemorrhage. No calvarial fractures are visualized. There is no evidence of pathologic ventricular dilatation. There is no evidence of acute sinusitis IMPRESSION: No acute intracranial findings Electronically signed by: Kelvin Fajardo M.D. 03/24/2018 4:36 PM Dictated Date/Time: 03/24/2018 4:35 PM
[2018-03-24] MEDS ORDERED: DOCU-94 PO (16:44)
[2018-03-24] MEDS ORDERED: QUET200T2 PO (16:44)
[2018-03-24 17:06] LABS: ALBUMIN 3.8 gm/dl (3.4-5.0); ALT/SGPT 26 U/L (12-78); AST/SGOT 34 U/L (15-37); BLOOD UREA NITROGEN 10 mg/dl (7-18); CARBON DIOXIDE 28 mmol/L (21-32); GLUCOSE 80 mg/dl (70-99); LIPASE 155 U/L (73-393); POTASSIUM 3.7 mmol/L (3.5-5.1); SODIUM 138 mmol/L (136-145)
[2018-03-24 17:11] LABS: ALKALINE PHOSPHATASE 55 U/L (45-117)
--- NOTE | 2018-03-24 17:18 | DIAGNOSTIC IMAGING REPORT ---
CHEST ONE VIEW PORTABLE CLINICAL HISTORY: Atypical chest pain, nausea, sweating. COMPARISON STUDY: 08/27/2017 FINDINGS: The cardiac and mediastinal contours are normal. There is no evidence of focal pulmonary consolidation. There is no evidence of failure. No pleural effusions are visualized.[ IMPRESSION: No active disease in the chest. Electronically signed by: Kelvin Fajardo M.D. 03/24/2018 5:17 PM Dictated Date/Time: 03/24/2018 5:17 PM
[2018-03-24 18:55] VITALS: BP 130/87; PULSE 80; O2SAT 99
== END 2018-03-24 18:57 | disposition home or self-care (01) ==
LOC: C.EDB 15:15
DX: R07.9 Chest pain, unspecified (principal); R11.0 Nausea; R10.11 Right upper quadrant pain; R20.0 Anesthesia of skin; K21.9 Gastro-esophageal reflux disease without esophagitis; K81.9 Cholecystitis, unspecified; F31.9 Bipolar disorder, unspecified; Z79.899 Other long term (current) drug therapy

== ENCOUNTER 2024-06-24 20:01 | Observation (INO) ==
--- NOTE | 2024-06-24 20:44 | Emergency Department Note ---
History of Present Illness General Chief complaint: Back Injury/Pain Stated complaint: BACK PAIN Time Seen by Provider: 06/24/24 20:23 History of Present Illness Maximum Pain Intensity: 10 This is a 48-year-old female that presents to the emergency department via private vehicle with complaints of "low back pain, radiating down right leg". The patient notes that earlier today around 6:45 PM she was bathing her pet and was bent over. She then picked up her pet, twisted and then noted severe pain in the right low back that radiated down the right leg. She notes right leg weakness associated with the low back pain radiating down the right leg. She denies any history of similar. She notes this is the worst pain she has ever experienced. Current pain 10/10. She denies any alleviating factors other than rest/not moving and certainly symptoms are worse with movement. She denies any anticoagulant use. No fevers or chills. No nausea or vomiting. No recent or current illness. No abdominal pain. No bowel or bladder incontinence. No numbness or tingling in genital region. No history of similar. No history of spine surgery. Home Medications Medication Instructions Recorded Confirmed Type bupropion HCl 200 mg tablet,12 hr 200 mg PO QAM 06/25/24 06/25/24 History sustained-release estradiol 0.05 mg/24 hr semiweekly 0.05 mg topical 2XWK 06/25/24 06/25/24 History transdermal patch fluoxetine 40 mg capsule 40 mg PO QAM 06/25/24 06/25/24 History meloxicam 7.5 mg tablet 7.5 mg PO DAILY PRN Pain 06/25/24 06/25/24 History mirabegron 50 mg tablet,extended 50 mg PO QAM 06/25/24 06/25/24 History release 24 hr (Myrbetriq) pentosan polysulfate sodium 100 mg 100 mg PO BID 06/25/24 06/25/24 History capsule (Elmiron) phenazopyridine 200 mg tablet 200 mg PO TID PRN Pain 06/25/24 06/25/24 History (Pyridium) quetiapine 50 mg tablet (Seroquel) 50 mg PO HS 06/25/24 06/25/24 History solifenacin 10 mg tablet (Vesicare) 10 mg PO QAM 06/25/24 06/25/24 History valacyclovir 1 gram tablet 2,000 mg PO BID PRN flare ups 06/25/24 06/25/24 History (Valtrex) Allergies Allergy/AdvReac Type Severity Reaction Status Date / Time hydromorphone Allergy Severe SHOCK.ITCHI Verified 06/25/24 00:57 NG morphine Allergy Intermediate HIVES-CAN Verified 06/25/24 00:57 TAKE TYL #3 W/O RXN nitrofurantoin Allergy Unknown MACROBID Verified 06/25/24 00:57 Sulfa (Sulfonamide AdvReac Mild GI Verified 06/25/24 00:57 Antibiotics) INTOLERANCE Past Med/Surg History Problem List (Updated 06/25/24 @ 03:48 by Cj Moreland PA-C) Intractable low back pain (Acute) Acute right lumbar radiculopathy (Acute) Pancreatitis Bipolar disorder (Chronic) GERD (gastroesophageal reflux disease) (Chronic) Depression (Chronic) Medical History (Updated 06/25/24 @ 03:48 by Cj Moreland PA-C) Partial small bowel obstruction Hiatal hernia IBS (irritable bowel syndrome) Surgical History History of cholecystectomy H/O umbilical hernia repair Status post breast reduction H/O LEEP H/O dilation and curettage Family History Father Hypertension Diabetes Mother Hypertension Social History Smoking Status: Never smoker Do You Dip or Chew Tobacco: No; Hx Alcohol Use: No Hx Substance Use: Yes Last Used Substance: Hours (ago) Last Used Substance Other:: 1700 06/24/24 Substance Use Type Other:: medical marijuana Preferred Language: [place] Communication Ability: Effective Visual Impairment: No Limitations Hearing Ability: Normal Head Doffer Required: No Beliefs That Will Affect Care: None Current Living Situation: Significant Other Feels Safe at Home: Yes Safety Concerns: Feels Safe At This Time Assistive Devices: Contacts and Glasses Review of Systems A total of 10 systems reviewed and were otherwise negative Physical Exam Vital Signs Vital Signs - 24 hr 06/24/24 20:09 06/24/24 21:03 06/24/24 23:00 Temperature 36.7 C Temperature Source Temporal Artery Scan Pulse Rate 101 H 84 80 Pulse Rate from SpO2 Sensor Pulse Rhythm Regular Respiratory Rate 20 18 Blood Pressure 129/91 Blood Pressure Mean 103 Pulse Oximetry 97 100 98 Oxygen Delivery Method Room Air Room Air Room Air Sepsis Recent Fever Within 48 Hours No Sepsis New/Unexplained Change in Mental Status N/A Sepsis Action Taken by Nursing No Action Required 06/24/24 23:51 06/24/24 23:51 06/25/24 00:00 Temperature Temperature Source Pulse Rate 79 84 79 Pulse Rate from SpO2 Sensor 83 81 Pulse Rhythm Respiratory Rate 18 16 Blood Pressure 110/72 108/72 Blood Pressure Mean 84 81 Pulse Oximetry 97 97 Oxygen Delivery Method Room Air Room Air Sepsis Recent Fever Within 48 Hours Sepsis New/Unexplained Change in Mental Status Sepsis Action Taken by Nursing 06/25/24 00:39 06/25/24 01:00 06/25/24 01:33 Temperature Temperature Source Pulse Rate 79 71 73 Pulse Rate from SpO2 Sensor 81 74 73 Pulse Rhythm Respiratory Rate 12 18 16 Blood Pressure 111/70 143/94 H 129/93 Blood Pressure Mean 83 110 105 Pulse Oximetry 97 98 97 Oxygen Delivery Method Room Air Room Air Room Air Sepsis Recent Fever Within 48 Hours Sepsis New/Unexplained Change in Mental Status Sepsis Action Taken by Nursing VITAL SIGNS - Vital signs and nursing notes were reviewed. Stable and afebrile. GENERAL -48-year-old female appearing her stated age who is in no acute distress. Communicates well with provider and answers questions appropriately. SKIN - Without rashes. No meningeal or petechial rash. HEAD - NC/AT. EYES - Sclera anicteric. MOUTH/OROPHARYNX - Without perioral cyanosis. NECK - Neck with FROM. No nuchal rigidity. LUNGS - CTA CARDIAC - RRR ABDOMEN - Abdominal contour normal without pulsations or visible masses. BS normoactive all four quadrants. No tenderness, palpable masses, hepatosplenomegaly, or ascites noted. EXTREMITIES - No clubbing or peripheral cyanosis. +5/5 strength noted in UE/LE bilaterally. MUSCULOSKELETALthere is reproducible tenderness to palpation overlying the right side of the L-spine inferiorly where the joins the pelvis. No step-off or crepitus. No overlying erythema. Patient is very slow to move from a supine/reclined position to twist to the left side to sit at the edge of the bed to assess reflexes. She appears to be in severe pain as she attempts to move. When she is sitting in the examination bed with the head at an incline she does press against the bed with her hands keeping the buttock off of the bed to help alleviate pressure in her low back. NEUROLOGIC - Cranial nerves grossly intact. Sensory intact to light touch throughout. Patellar reflexes +2/4. PSYCH - A&Ox3 and cooperates fully with examiner. Pt is very pleasant and interacts well with examiner. Course Administered Medications Sodium Chloride (Nss) 1,000 mls @ 75 mls/hr IV .[id number] STA Stop: 06/25/24 15:05 Last Admin: 06/25/24 02:45 Dose: 75 mls/hr Documented By: NIA Oxycodone HCl (Oxycodone Hcl Ir 5 Mg Tab (Immediate Release)) 5 - 10 mg PO QID PRN PRN Reason: Pain Stop: 07/09/24 01:40 Last Admin: 06/25/24 02:45 Dose: 10 mg Documented By: NIA Discontinued Medications Fentanyl Citrate (Fentanyl Citrate Pf 100 Mcg/2 Ml Vial) 50 mcg IV NOW STA Stop: 06/24/24 20:43 Last Admin: 06/24/24 20:59 Dose: 50 mcg Documented By: [facility] Fentanyl Citrate (Fentanyl Citrate Pf 100 Mcg/2 Ml Vial) 50 mcg IV NOW STA Stop: 06/24/24 23:08 Last Admin: 06/24/24 23:43 Dose: 50 mcg Documented By: RANDI Ketorolac Tromethamine (Ketorolac Tromethamine 15 Mg/Ml Vial) 10 mg IV NOW ONE Stop: 06/25/24 00:19 Last Admin: 06/25/24 00:22 Dose: 10 mg Documented By: RANDI Lidocaine (Lidocaine 5% 1 Patch) 1 patch TD ONE STA Stop: 06/25/24 01:46 Last Admin: 06/25/24 02:12 Dose: 1 patch Documented By: RANDI Medical Decision Making Laboratory Data 06/24/24 20:54 06/24/24 20:54 Lab Results 06/24/24 06/25/24 Range/Units 20:54 01:00 WBC 6.41 (4.8-10.8) K/ul RBC 4.56 (4.20-5.40) M/uL Hgb 13.0 (12.0-16.0) g/dl Hct 39.1 (37.0-47.0) % MCV 85.7 (80.0-100.0) fL MCH 28.5 (25.0-34.0) pg MCHC 33.2 (32.0-36.0) g/dL RDW Std Deviation 40.6 (36.4-46.3) fL RDW Coeff of Lázaro 13.0 (11.5-14.5) % Plt Count 212 (130-400) K/uL MPV 11.2 (9.4-12.4) fL Immature Gran % (Auto) 0.3 % Neut % (Auto) 62.5 % Lymph % (Auto) 26.1 % Morris % (Auto) 8.0 % Eos % (Auto) 2.2 % Baso % (Auto) 0.9 % Neut # (Auto) 4.01 (1.40-6.50) K/uL Lymph # (Auto) 1.67 (1.20-3.40) K/uL Morris # (Auto) 0.51 (0.11-0.59) K/uL Eos # (Auto) 0.14 (0.00-0.50) K/uL Baso # (Auto) 0.06 (0.00-0.20) K/uL Immature Gran # (Auto) 0.02 (0.01-0.20) K/uL Sodium 138 (136-145) mmol/L Potassium 4.0 (3.5-5.1) mmol/L Chloride 104 (98-107) mmol/L Carbon Dioxide 28 (21-32) mmol/L Anion Gap 6 (3-11) BUN 16 (6-23) mg/dl Creatinine 1.05 (0.6-1.2) mg/dl Est Cr Clr Drug Dosing Not Reportable Est GFR ( Amer) 73.2 ml/min Est GFR (Non-Af Amer) 63.2 ml/min BUN/Creatinine Ratio 15.2 (10-20) Glucose 82 (70-99(Fasting)) mg/dl Calcium 10.1 (8.6-10.3) mg/dl Total Bilirubin 0.5 (0.2-1.0) mg/dl AST 15 (13-39) U/L ALT 10 (7-52) U/L Alkaline Phosphatase 59 (34-104) U/L Total Creatine Kinase 71 (26-192) U/L Total Protein 7.2 (6.0-8.3) gm/dl Albumin 4.5 (3.4-5.0) gm/dl Globulin 2.7 (2.5-4.0) gm/dl Albumin/Globulin Ratio 1.7 (0.9-2) HCG, Qual Negative (Negative) Urine Color Yellow Urine Appearance Clear (Clear) Urine pH 6.0 (4.5-7.5) Ur Specific [place] 1.013 (1.000-1.030) Urine Protein Negative (Negative) Urine Glucose (UA) Negative (Negative) Urine Ketones Negative (Negative) Urine Blood Negative (Negative) Urine Nitrite Negative (Negative) Urine Bilirubin Negative (Negative) Urine Urobilinogen Negative (Negative) Ur Leukocyte Esterase Negative (Negative) Imaging Data Radiologist's Impression: Lumbar Spine MRI 06/24/24 21:22 Exam(s): MRI L SPINE Without Contrast EXAM: MR Lumbar Spine Without Intravenous Contrast CLINICAL HISTORY: Reason for exam: R low back pain, R leg weakness. TECHNIQUE: Magnetic resonance images of the lumbar spine without intravenous contrast in multiple planes. COMPARISON: Prior plain film of his lumbar spine from June 24, 2024. FINDINGS: Vertebrae: There are 5 lumbar type vertebral bodies with a mild generalized curve to the left and normal lumbar lordosis. There is normal vertebral body alignment. The bone marrow signal is normal. No acute fracture. Spinal cord: The conus is normal in size and shape and signal characteristics, terminating at L1-L2. Soft tissues: Moderate atrophy of the iliopsoas, paraspinous intraspinous musculature. The aorta and IVC flow voids are intact. The visualized kidneys are unremarkable. DISCS/SPINAL CANAL/NEURAL FORAMINA: L1-L2: There is mild disc degeneration with annular disc bulge asymmetric to the right flattening the ventral thecal sac. L2-L3: Unremarkable. No significant disc disease. No stenosis. L3-L4: There is mild disc degeneration with annular disc bulge asymmetric to the left causing a mild left subarticular recess stenosis with disc extending into the left neural foramen causing mild stenosis without evidence of neural impingement. L4-L5: There is mild disc degeneration with annular disc bulge causing a mild subarticular recess stenosis with disc extending to the neuroforamina without evidence of impingement or significant stenosis. L5-S1: There is mild disc degeneration with annular disc bulge asymmetric to the right flattening the ventral thecal sac. IMPRESSION: 1. Mild disc degeneration at L1-2, L3-4, L4-5 and L5-S1 with annular disc bulging flattening the ventral thecal sac and causing a mild subarticular recess stenosis at L3-4 and L4-5 without evidence of neural impingement. 2. There is no spinal canal stenosis. 3. There is a mild left L3-4 neural foraminal stenosis without evidence of neural impingement. 4. No evidence of fracture, infection, tumor or arachnoiditis. Electronically signed by: Shira Tadeo MD 06/25/24 01:08 AM MDM Narrative Patient was seen and evaluated as above in room D05. Review was performed of triage nursing notes and vital signs. A thorough history and physical examination were performed. Patient presents to us today for evaluation of right low back pain that radiates down the right leg with associated right leg weakness. This happened when she stood up from bathing her pet, twisted. Presentation appeared to be musculoskeletal etiology. Vital signs stable. She appears to be in pain with current pain 10/10. There is within normal limits patellar reflexes. Pain is reproducible with palpation of the right low back area. Pain radiates down the right leg. She has a benign abdominal examination. No abdominal pain. Options of care were discussed with the patient. IV access was established. Labs were drawn. X-ray of the L-spine was performed. Per my interpretation no fracture or dislocation noted. Labs reveal no leukocytosis or concerning anemia. No emergent metabolic disturbance. hCG negative. Urinalysis negative. Patient does have several allergies, and I did elect to proceed with IV fentanyl for treating the patient's severe pain. This was administered x 2. Pain persisted. We will proceed with MRI of the L-spine to further evaluate. However, patient's pain continues to be severe. IV Toradol was ordered for pain. Patient was reevaluated with some improvement but not much. I do believe that further evaluation and management is warranted in the inpatient setting. Case discussed with the hospitalist service. Please refer to further documentation regarding her stay. Results of MRI l spine as above. No evidence of cauda equina syndrome by exam or MRI at this time. I do suspect musculoskeletal etiology at this time. GCS: 15 In the evaluation and treatment of this patient the following differential diagnosis entertained: Fracture, dislocation, subluxation, cauda equina syndrome, AAA, diverticulitis, appendicitis, torsion, osteomyelitis, piriformis syndrome, strain, sprain, among others. Impression & Plan Acute right lumbar radiculopathy, Intractable low back pain Discharge Plan Visit Data Chief Complaint: Back Injury/Pain Stated Complaint: BACK PAIN ED Provider: Tarsha Silva ED Midlevel Provider: Cj Moreland Discharge Problem: Acute right lumbar radiculopathy, Intractable low back pain Patient Disposition: Admitted As Inpatient Condition: Good Discharge Instructions Interventions: ED Discharge Assessment Last Done: 06/25/24 02:09
[2024-06-24] MEDS: fentaNYL citrate PF 100 MCG/2 ML VIAL IV STA ×2 (20:59→23:43)
[2024-06-24 21:09] LABS: Basophils # (auto) 0.06 K/uL (0.00-0.20); Basophils % (auto) 0.9 %; Eosinophils # (auto) 0.14 K/uL (0.00-0.50); Eosinophils % (auto) 2.2 %; Hematocrit (blood only) 39.1 % (37.0-47.0); Immature Granulocytes # (auto) 0.02 K/uL (0.01-0.20); Immature Granulocytes % (auto) 0.3 %; Lymphocytes # (auto) 1.67 K/uL (1.20-3.40); Lymphocytes % (auto) 26.1 %; Mean Corpuscular Hemoglobin 28.5 pg (25.0-34.0); Mean Corpuscular Hgb Conc 33.2 g/dL (32.0-36.0); Mean Corpuscular Volume 85.7 fL (80.0-100.0); Mean Platelet Volume 11.2 fL (9.4-12.4); Monocytes # (auto) 0.51 K/uL (0.11-0.59); Neutrophils # (auto) 4.01 K/uL (1.40-6.50); Neutrophils % (auto) 62.5 %; Platelet Count 212 K/uL (130-400); RDW Standard Deviation 40.6 fL (36.4-46.3); Red Blood Count 4.56 M/uL (4.20-5.40); White Blood Count 6.41 K/ul (4.8-10.8)
[2024-06-24 21:26] LABS: Alanine Aminotransferase 10 U/L (7-52); Albumin Globulin Ratio 1.7 (0.9-2); Albumin Level 4.5 gm/dl (3.4-5.0); Alkaline Phosphatase 59 U/L (34-104); Anion Gap 6 (3-11); Aspartate Aminotransferase 15 U/L (13-39); BUN Creatinine Ratio 15.2 (10-20); Bilirubin,Total 0.5 mg/dl (0.2-1.0); Blood Urea Nitrogen 16 mg/dl (6-23); Calcium 10.1 mg/dl (8.6-10.3); Carbon Dioxide 28 mmol/L (21-32); Chloride 104 mmol/L (98-107); Est GFR (African American) 73.2 ml/min; Est GFR (Non-African American) 63.2 ml/min; Globulin 2.7 gm/dl (2.5-4.0); Glucose 82 mg/dl (70-99(Fasting)); Sodium 138 mmol/L (136-145); Total Protein 7.2 gm/dl (6.0-8.3)
[2024-06-24 21:48] LABS: Pregnancy Test, Serum Negative (Negative)
[2024-06-25] MEDS: KETOROLAC TROMETHAMINE 15 MG/ML VIAL IV ONE (00:22)
--- NOTE | 2024-06-25 01:09 | Magnetic Resonance Report ---
Exam(s): MRI L SPINE Without Contrast EXAM: MR Lumbar Spine Without Intravenous Contrast CLINICAL HISTORY: Reason for exam: R low back pain, R leg weakness. TECHNIQUE: Magnetic resonance images of the lumbar spine without intravenous contrast in multiple planes. COMPARISON: Prior plain film of his lumbar spine from June 24, 2024. FINDINGS: Vertebrae: There are 5 lumbar type vertebral bodies with a mild generalized curve to the left and normal lumbar lordosis. There is normal vertebral body alignment. The bone marrow signal is normal. No acute fracture. Spinal cord: The conus is normal in size and shape and signal characteristics, terminating at L1-L2. Soft tissues: Moderate atrophy of the iliopsoas, paraspinous intraspinous musculature. The aorta and IVC flow voids are intact. The visualized kidneys are unremarkable. DISCS/SPINAL CANAL/NEURAL FORAMINA: L1-L2: There is mild disc degeneration with annular disc bulge asymmetric to the right flattening the ventral thecal sac. L2-L3: Unremarkable. No significant disc disease. No stenosis. L3-L4: There is mild disc degeneration with annular disc bulge asymmetric to the left causing a mild left subarticular recess stenosis with disc extending into the left neural foramen causing mild stenosis without evidence of neural impingement. L4-L5: There is mild disc degeneration with annular disc bulge causing a mild subarticular recess stenosis with disc extending to the neuroforamina without evidence of impingement or significant stenosis. L5-S1: There is mild disc degeneration with annular disc bulge asymmetric to the right flattening the ventral thecal sac. IMPRESSION: 1. Mild disc degeneration at L1-2, L3-4, L4-5 and L5-S1 with annular disc bulging flattening the ventral thecal sac and causing a mild subarticular recess stenosis at L3-4 and L4-5 without evidence of neural impingement. 2. There is no spinal canal stenosis. 3. There is a mild left L3-4 neural foraminal stenosis without evidence of neural impingement. 4. No evidence of fracture, infection, tumor or arachnoiditis. Electronically signed by: Shira Tadeo MD 06/25/24 01:08 AM
[2024-06-25 01:25] LABS: Creatine Kinase 71 U/L (26-192)
[2024-06-25 01:26] LABS: Appearance Urine Clear (Clear); Bilirubin Urine Negative (Negative); Blood Urine Negative (Negative); Color Urine Yellow; Glucose Urine UA Negative (Negative); Ketones Urine Negative (Negative); Leukocyte Esterase Urine Negative (Negative); Nitrite Urine Negative (Negative); Protein Urine Negative (Negative); Specific Gravity Urine 1.013 (1.000-1.030); Urobilinogen Urine Negative (Negative)
[2024-06-25] MEDS ORDERED: LORazepam 0.5 MG TAB PO PRN (01:41)
[2024-06-25] MEDS: LIDOCAINE 5% 1 PATCH TD STA (02:12)
--- NOTE | 2024-06-25 02:23 | History & Physical Report ---
Date of Service June 25, 2024 Assessment & Plan (1) Acute right lumbar radiculopathy: Plan: GERD, stable off maintenance medications interstitial cystitis mood disorder, stable on regimen OBS GMF Lidoderm patch trial Analgesia PT eval DVT prophylaxis. SCDs Full code Text document was generated using [employer] voice recognition software. It may contain grammatical or spelling errors. Kindly contact undersigned for clarification of any documentation item in question. History of Present Illness Chief Complaint: Back pain Primary Care Provider: Cale Jackson MD History obtained from patient, family, and records. Medical history significant for GERD, interstitial cystitis, mood disorder. 2 weeks ago, patient fell outside while walking on a curb. Achy neck pain without unusual arm or leg weakness. Improved neck pain after outpatient chiropractor consultation. Patient was bathing her pet cat in the bathtub last night when she experienced sudden onset achy mid to low back pain with radiation to the right lower extremity. No fever, no chills, no incontinence. Barry like she was going to pass out from the pain. Intractable discomfort at the ER. Medical History as above Surgical History : Colposcopy, D&C, oviduct fulguration, cholecystectomy, reduction mammoplasty, hernia repair Family History : DM, heart disease hypertension, mood disorder Personal/Social history : Non-smoker, no EtOH intake, caregiver Allergies Allergy/AdvReac Type Severity Reaction Status Date / Time hydromorphone Allergy Severe SHOCK.ITCHI Verified 06/25/24 00:57 NG morphine Allergy Intermediate HIVES-CAN Verified 06/25/24 00:57 TAKE TYL #3 W/O RXN nitrofurantoin Allergy Unknown MACROBID Verified 06/25/24 00:57 Sulfa (Sulfonamide AdvReac Mild GI Verified 06/25/24 00:57 Antibiotics) INTOLERANCE Home Medications Medication Instructions Recorded Confirmed Type bupropion HCl 200 mg tablet,12 hr 200 mg PO QAM 06/25/24 06/25/24 History sustained-release estradiol 0.05 mg/24 hr semiweekly 0.05 mg topical 2XWK 06/25/24 06/25/24 History transdermal patch fluoxetine 40 mg capsule 40 mg PO QAM 06/25/24 06/25/24 History meloxicam 7.5 mg tablet 7.5 mg PO DAILY PRN Pain 06/25/24 06/25/24 History mirabegron 50 mg tablet,extended 50 mg PO QAM 06/25/24 06/25/24 History release 24 hr (Myrbetriq) pentosan polysulfate sodium 100 mg 100 mg PO BID 06/25/24 06/25/24 History capsule (Elmiron) phenazopyridine 200 mg tablet 200 mg PO TID PRN Pain 06/25/24 06/25/24 History (Pyridium) quetiapine 50 mg tablet (Seroquel) 50 mg PO HS 06/25/24 06/25/24 History solifenacin 10 mg tablet (Vesicare) 10 mg PO QAM 06/25/24 06/25/24 History valacyclovir 1 gram tablet 2,000 mg PO BID PRN flare ups 06/25/24 06/25/24 History (Valtrex) Past Med/Surg History Problem List (Updated 06/25/24 @ 03:48 by Cj Moreland PA-C) Intractable low back pain (Acute) Acute right lumbar radiculopathy (Acute) Pancreatitis Bipolar disorder (Chronic) GERD (gastroesophageal reflux disease) (Chronic) Depression (Chronic) Medical History (Updated 06/25/24 @ 03:48 by Cj Moreland PA-C) Partial small bowel obstruction Hiatal hernia IBS (irritable bowel syndrome) Surgical History History of cholecystectomy H/O umbilical hernia repair Status post breast reduction H/O LEEP H/O dilation and curettage Family History Father Hypertension Diabetes Mother Hypertension Social History Smoking Status: Never smoker Do You Dip or Chew Tobacco: No; Hx Alcohol Use: No Hx Substance Use: Yes Last Used Substance: Hours (ago) Last Used Substance Other:: 1700 06/24/24 Substance Use Type Other:: medical marijuana Preferred Language: Irish Communication Ability: Effective Visual Impairment: No Limitations Hearing Ability: Normal Exit Booth Agent Required: No Beliefs That Will Affect Care: None Current Living Situation: Significant Other Feels Safe at Home: Yes Safety Concerns: Feels Safe At This Time Assistive Devices: Contacts and Glasses Review of Systems Review of Systems: As per HPI, all other systems reviewed and negative Physical Exam Physical Exam: GENERAL: Slightly uncomfortable, no respiratory distress SKIN: Normal color, warm HEENT: [place] palpebral conjunctivae, no ptosis, dry buccal mucosa NECK : Supple, no tenderness CHEST : CTA, no tenderness HEART : RRR, no obvious murmurs BACK : Low back tenderness, negative SLR ABDOMEN: Some distention, nontender EXTREMITIES : No LE swelling/tenderness, no other conspicuous deformities noted NEUROLOGIC : Coherent, no facial asymmetry, no other gross focality Results & Data Results & Data Vital Signs (Past 12 Hours) Vital Signs Temp Pulse Resp BP Pulse Ox O2 Del Method 06/25/24 01:00 71 18 143/94 H 98 Room Air 06/25/24 00:39 79 12 111/70 97 Room Air 06/25/24 00:00 79 16 108/72 97 Room Air 06/24/24 23:51 84 18 110/72 97 Room Air 06/24/24 23:51 79 06/24/24 23:00 80 18 98 Room Air 06/24/24 21:03 84 100 Room Air 06/24/24 20:09 36.7 C 101 H 20 129/91 97 Room Air Laboratory Results Laboratory Results WBC 6.41 K/ul (4.8-10.8) 06/24/24 20:54 RBC 4.56 M/uL (4.20-5.40) 06/24/24 20:54 Hgb 13.0 g/dl (12.0-16.0) 06/24/24 20:54 Hct 39.1 % (37.0-47.0) 06/24/24 20:54 MCV 85.7 fL (80.0-100.0) 06/24/24 20:54 MCH 28.5 pg (25.0-34.0) 06/24/24 20:54 MCHC 33.2 g/dL (32.0-36.0) 06/24/24 20:54 RDW Std Deviation 40.6 fL (36.4-46.3) 06/24/24 20:54 RDW Coeff of Lázaro 13.0 % (11.5-14.5) 06/24/24 20:54 Plt Count 212 K/uL (130-400) 06/24/24 20:54 MPV 11.2 fL (9.4-12.4) 06/24/24 20:54 Immature Gran % (Auto) 0.3 % 06/24/24 20:54 Neut % (Auto) 62.5 % 06/24/24 20:54 Lymph % (Auto) 26.1 % 06/24/24 20:54 Hill % (Auto) 8.0 % 06/24/24 20:54 Eos % (Auto) 2.2 % 06/24/24 20:54 Baso % (Auto) 0.9 % 06/24/24 20:54 Neut # (Auto) 4.01 K/uL (1.40-6.50) 06/24/24 20:54 Lymph # (Auto) 1.67 K/uL (1.20-3.40) 06/24/24 20:54 Hill # (Auto) 0.51 K/uL (0.11-0.59) 06/24/24 20:54 Eos # (Auto) 0.14 K/uL (0.00-0.50) 06/24/24 20:54 Baso # (Auto) 0.06 K/uL (0.00-0.20) 06/24/24 20:54 Immature Gran # (Auto) 0.02 K/uL (0.01-0.20) 06/24/24 20:54 Sodium 138 mmol/L (136-145) 06/24/24 20:54 Potassium 4.0 mmol/L (3.5-5.1) 06/24/24 20:54 Chloride 104 mmol/L (98-107) 06/24/24 20:54 Carbon Dioxide 28 mmol/L (21-32) 06/24/24 20:54 Anion Gap 6 (3-11) 06/24/24 20:54 BUN 16 mg/dl (6-23) 06/24/24 20:54 Creatinine 1.05 mg/dl (0.6-1.2) 06/24/24 20:54 Est Cr Clr Drug Dosing Not Reportable 06/24/24 20:54 Est GFR ( Amer) 73.2 ml/min 06/24/24 20:54 Est GFR (Non-Af Amer) 63.2 ml/min 06/24/24 20:54 BUN/Creatinine Ratio 15.2 (10-20) 06/24/24 20:54 Glucose 82 mg/dl (70-99(Fasting)) 06/24/24 20:54 Calcium 10.1 mg/dl (8.6-10.3) 06/24/24 20:54 Total Bilirubin 0.5 mg/dl (0.2-1.0) 06/24/24 20:54 AST 15 U/L (13-39) 06/24/24 20:54 ALT 10 U/L (7-52) 06/24/24 20:54 Alkaline Phosphatase 59 U/L (34-104) 06/24/24 20:54 Total Creatine Kinase 71 U/L (26-192) 06/24/24 20:54 Total Protein 7.2 gm/dl (6.0-8.3) 06/24/24 20:54 Albumin 4.5 gm/dl (3.4-5.0) 06/24/24 20:54 Globulin 2.7 gm/dl (2.5-4.0) 06/24/24 20:54 Albumin/Globulin Ratio 1.7 (0.9-2) 06/24/24 20:54 HCG, Qual Negative (Negative) 06/24/24 20:54 Urine Color Yellow 06/25/24 01:00 Urine Appearance Clear (Clear) 06/25/24 01:00 Urine pH 6.0 (4.5-7.5) 06/25/24 01:00 Ur Specific [place] 1.013 (1.000-1.030) 06/25/24 01:00 Urine Protein Negative (Negative) 06/25/24 01:00 Urine Glucose (UA) Negative (Negative) 06/25/24 01:00 Urine Ketones Negative (Negative) 06/25/24 01:00 Urine Blood Negative (Negative) 06/25/24 01:00 Urine Nitrite Negative (Negative) 06/25/24 01:00 Urine Bilirubin Negative (Negative) 06/25/24 01:00 Urine Urobilinogen Negative (Negative) 06/25/24 01:00 Ur Leukocyte Esterase Negative (Negative) 06/25/24 01:00 Impressions Lumbar Spine MRI 06/24/24 21:22 Exam(s): MRI L SPINE Without Contrast EXAM: MR Lumbar Spine Without Intravenous Contrast CLINICAL HISTORY: Reason for exam: R low back pain, R leg weakness. TECHNIQUE: Magnetic resonance images of the lumbar spine without intravenous contrast in multiple planes. COMPARISON: Prior plain film of his lumbar spine from June 24, 2024. FINDINGS: Vertebrae: There are 5 lumbar type vertebral bodies with a mild generalized curve to the left and normal lumbar lordosis. There is normal vertebral body alignment. The bone marrow signal is normal. No acute fracture. Spinal cord: The conus is normal in size and shape and signal characteristics, terminating at L1-L2. Soft tissues: Moderate atrophy of the iliopsoas, paraspinous intraspinous musculature. The aorta and IVC flow voids are intact. The visualized kidneys are unremarkable. DISCS/SPINAL CANAL/NEURAL FORAMINA: L1-L2: There is mild disc degeneration with annular disc bulge asymmetric to the right flattening the ventral thecal sac. L2-L3: Unremarkable. No significant disc disease. No stenosis. L3-L4: There is mild disc degeneration with annular disc bulge asymmetric to the left causing a mild left subarticular recess stenosis with disc extending into the left neural foramen causing mild stenosis without evidence of neural impingement. L4-L5: There is mild disc degeneration with annular disc bulge causing a mild subarticular recess stenosis with disc extending to the neuroforamina without evidence of impingement or significant stenosis. L5-S1: There is mild disc degeneration with annular disc bulge asymmetric to the right flattening the ventral thecal sac. IMPRESSION: 1. Mild disc degeneration at L1-2, L3-4, L4-5 and L5-S1 with annular disc bulging flattening the ventral thecal sac and causing a mild subarticular recess stenosis at L3-4 and L4-5 without evidence of neural impingement. 2. There is no spinal canal stenosis. 3. There is a mild left L3-4 neural foraminal stenosis without evidence of neural impingement. 4. No evidence of fracture, infection, tumor or arachnoiditis. Electronically signed by: Shira Tadeo MD 06/25/24 01:08 AM
[2024-06-25] MEDS ORDERED: PHENAZOPYRIDINE HCL 200 MG TAB PO PRN (02:30)
[2024-06-25] MEDS: oxyCODONE HCL IR 5 MG TAB (IMMEDIATE RELEASE) PO PRN (02:45)
[2024-06-25] MEDS: SODIUM CHLORIDE 0.9% 1,000 ML IV STA (02:45)
[2024-06-25] MEDS: NITROGLYCERIN SL 0.4 MG/TAB TAB SL STA (04:51)
--- NOTE | 2024-06-25 04:59 | Communication Note ---
Date of Service: June 25, 2024 Patient with sharp chest pain this a.m. Minimal relief with nitroglycerin. No relief with Pepcid. EKG as per my interpretation rate 90, NSR, normal axis, T wave abnormalities septal leads AP Atypical chest pain Rule out PE PCU transfer Check troponin CT chest PE study N.p.o. for now Further management contingent on workup results
[2024-06-25] MEDS: NITROGLYCERIN SL 0.4 MG/TAB TAB SL PRN (05:09)
[2024-06-25] MEDS: FAMOTIDINE 20MG IV PUSH 20 MG/5 ML SYR IV ONE (05:35)
[2024-06-25] MEDS: ACETAMINOPHEN 1,000 MG/100 ML VIAL IV STA (05:59)
[2024-06-25] MEDS: PROMETHAZINE HCL 6.25 MG in SODIUM CHLORIDE 0.9% 50 ML IV PRN (06:54)
[2024-06-25] MEDS: OPTIRAY 320 125ml IV ONE (07:09)
[2024-06-25 07:15] LABS: Alanine Aminotransferase 11 U/L (7-52); Albumin Globulin Ratio 1.7 (0.9-2); Alkaline Phosphatase 55 U/L (34-104); Anion Gap 4 (3-11); Aspartate Aminotransferase 18 U/L (13-39); BUN Creatinine Ratio 16.9 (10-20); Bilirubin,Total 0.5 mg/dl (0.2-1.0); Blood Urea Nitrogen 14 mg/dl (6-23); Calcium 9.4 mg/dl (8.6-10.3); Carbon Dioxide 29 mmol/L (21-32); Chloride 106 mmol/L (98-107); Creatinine Clr Calc Pharmacy 88.7 ml/min; Est GFR (African American) 97.3 ml/min; Globulin 2.3 gm/dl (2.5-4.0); Glucose 107 mg/dl (70-99(Fasting)); Lipase 5 U/L (11-82); Magnesium 1.7 mg/dl (1.7-2.4); Potassium 3.8 mmol/L (3.5-5.1); Sodium 139 mmol/L (136-145); Total Protein 6.3 gm/dl (6.0-8.3)
[2024-06-25 07:21] LABS: Troponin I High Sensitivity < 2.3 pg/ml (0-14)
[2024-06-25] MEDS: KETOROLAC TROMETHAMINE 15 MG/ML VIAL IV PRN (07:24)
[2024-06-25 07:31] LABS: Partial Thromboplastin Ratio 0.9; Partial Thromboplastin Time 25 Seconds (21-31)
--- NOTE | 2024-06-25 07:56 | XRay Report ---
XR lumbar spine min 4V routine HISTORY: 48 years-old Female R sided low back pain acute low back pain COMPARISON: MRI lumbar spine 06/24/2024 TECHNIQUE: 5 views of the lumbar spine FINDINGS: No acute fracture or subluxation. Minimal degenerative changes with mild levoscoliosis. Cholecystecto my. Moderate to extensive colonic fecal retention. IMPRESSION: 1. No acute fracture or subluxation. 2. Moderate to extensive colonic fecal retention ACT 112: Negative or not required by law. The above report was generated using voice recognition software. It may contain grammatical, syntax o r spelling errors. Electronically signed by: John Gomez M.D. 06/25/2024 7:55 AM
[2024-06-25] MEDS: FLUoxetine HCL 20 MG CAP PO SCH (08:06)
[2024-06-25] MEDS: buPROPion SR 100 MG TABCR PO SCH (08:06)
[2024-06-25] MEDS: OXYBUTYNIN CHLORIDE XL 5 MG TABCR PO SCH (08:06)
[2024-06-25] MEDS: VIBEGRON 75 MG TAB PO SCH (08:06)
--- NOTE | 2024-06-25 08:06 | XRay Report ---
XR chest 1V portable HISTORY: 48 years-old Female cp acute chest pain and shortness of breath COMPARISON: CTA chest of same day TECHNIQUE: AP view of the chest FINDINGS: Cardiomediastinal and hilar silhouettes are within normal limits. No pneumothorax, or pleural effusio n. The bones appear grossly intact. IMPRESSION: No acute process. ACT 112: Negative or not required by law. The above report was generated using voice recognition software. It may contain grammatical, syntax o r spelling errors. Electronically signed by: John Gomez M.D. 06/25/2024 8:05 AM
--- NOTE | 2024-06-25 08:28 | CT Scan Report ---
CT angio chest PE protocol CT DOSE: 393.8 mGy.cm HISTORY: 48 years-old Female with cp. Acute chest pain TECHNIQUE: Multiple CTA images of the chest were obtained after the intravenous administration of 120 ml Optiray. Coronal and sagittal MIPS were obtained from the axial data set and were submitted for review. All measurements were obtained according to NASCET criteria. A dose lowering technique was u tilized adhering to the principles of ALARA. COMPARISON: Chest radiograph of same day FINDINGS: CTA: The heart is normal in size with trace pericardial effusion. Unremarkable thoracic aorta. Unremarkabl e pulmonary artery. No pulmonary emboli are identified. CT CHEST: Unremarkable thyroid. No adenopathy. No pneumothorax, pleural effusion, airspace consolidation or pul monary edema. No suspicious pulmonary nodules or masses. Central airways are patent. No acute upper abdominal abnormality. Unremarkable soft tissues. No acute fracture. IMPRESSION: Unremarkable CTA of the chest. ACT 112: Negative or not required by law. The above report was generated using voice recognition software. It may contain grammatical, syntax o r spelling errors. Electronically signed by: John Gomez M.D. 06/25/2024 8:26 AM
--- NOTE | 2024-06-25 08:52 | Electrocardiogram Report ---
Test Reason : Blood Pressure : / mmHG Vent. Rate : 088 BPM Atrial Rate : 088 BPM P-R Int : 188 ms QRS Dur : 092 ms QT Int : 386 ms P-R-T Axes : 059 064 073 degrees QTc Int : 467 ms Normal sinus rhythm Normal ECG When compared with ECG of 21-NOV-2020 02:44, No significant change was found Confirmed by Shelton John ([id number]) on 06/25/2024 8:52:01 AM Referred By: REFERRED SELF Confirmed By:Shelton John
[2024-06-25] MEDS: ALUMINUM/MAGNESIUM SUSP 30 ML UDC PO STA (15:33)
[2024-06-25] MEDS: PANTOprazole 40 MG in SYRINGE 0 ML IV SCH (15:33)
[2024-06-25] MEDS: predniSONE 20 MG TAB PO STA (15:33)
[2024-06-25] MEDS: ACETAMINOPHEN 325 MG TAB PO PRN (16:23)
--- NOTE | 2024-06-25 16:35 | Hospitalist Progress Note ---
Date of Service June 25, 2024 Assessment & Plan (1) Acute right lumbar radiculopathy: Plan: GERD, stable off maintenance medications mood disorder, stable on regimen Lumbar spine MRI: 1. Mild disc degeneration at L1-2, L3-4, L4-5 and L5-S1 with annular disc bulging flattening the ventral thecal sac and causing a mild subarticular recess stenosis at L3-4 and L4-5 without evidence of neural impingement. 2. There is no spinal canal stenosis. 3. There is a mild left L3-4 neural foraminal stenosis without evidence of neural impingement. 4. No evidence of fracture, infection, tumor or arachnoiditis. add Prednisone 40mg po daily, Flexeril PRN, Warm compress Ortho spine consulted Chest Pain, likely GERD Trop x 2 negative EKG no acute ischemia CT chest: no acute PE Maalox, Protonix DVT prophylaxis. SCDs Full code plan of care discussed with patient in detail and at length all questions answered she is understanding, agreeable, comfortable with the plan of care Admission and Anticipated Discharge Date Admission Date: June 25, 2024 Subjective ff up for back pain with sciatica, etc seen resting in bed, not in distress patient's family at bedside visiting states she feels improved compared to yesterday back pain now moderate no radiation to leg, no weakness/paresthesias chest pain resolving mostly epigastric, mostly feels like reflux no other associated symptoms Review of Systems Review of Systems: all noted and negative except for above Physical Exam Physical Exam: General- oriented x 3, not in distress, speaks in sentences with no effort or accessory muscle use Eyes- anicteric Neck- no JVD Lungs- clear breath sounds bilaterally, no rales/wheezes Heart- normal rate, regular rhythm; no murmurs Abdomen- normal bowel sounds, nondistended, soft, nontender Extremities- no pretibial edema, no calf tenderness back - (+) tenderness on the lower back no erythema/warmth/hematoma Neuro- alert, oriented x 3; no gross focal neurologic deficits Skin- warm & dry Results & Data Results & Data Vital Signs (Past 12 Hours) Vital Signs Temp Pulse Pulse Resp BP BP Pulse Ox 06/25/24 16:00 36.3 C L 76 16 118/80 98 06/25/24 14:54 36.6 C 77 16 121/79 98 06/25/24 14:08 78 06/25/24 13:02 06/25/24 11:20 36.4 C L 89 16 105/71 98 06/25/24 07:39 84 06/25/24 07:22 36.4 C L 86 18 112/79 98 06/25/24 06:55 83 18 118/86 O2 Del Method 06/25/24 16:00 Room Air 06/25/24 14:54 Room Air 06/25/24 14:08 06/25/24 13:02 Room Air 06/25/24 11:20 Room Air 06/25/24 07:39 06/25/24 07:22 Room Air 06/25/24 06:55 all noted and reviewed including below
[2024-06-25] MEDS: CYCLOBENZAPRINE HCL 5 MG TAB PO ONE (16:49)
[2024-06-25] MEDS: QUEtiapine FUMARATE 25 MG TABLET PO SCH (20:49)
[2024-06-25] MEDS: CYCLOBENZAPRINE HCL 5 MG TAB PO PRN (20:50)
[2024-06-25] MEDS: LIDOCAINE 5% 1 PATCH TD SCH (20:51)
[2024-06-26 07:28] VITALS: BP 100/65; PULSE 82; RESP 16; TEMP 98.1; O2SAT 96
--- NOTE | 2024-06-26 10:36 | Orthopedic Consultation ---
Date of Consultation June 26, 2024 Assessment & Plan (1) Right-sided low back pain with sciatica: MRI lumbar spine available for review demonstrates evidence of some modest facet hypertrophy most impressive at L4-L5. There is however no significant neural encroachment throughout the entire study. Plan in length discussion today with the patient regarding her symptom complex and presentation. I would recommend she initiate a course of physical therapy for lumbar stabilization strengthening exercises and sciatica. She would also need to transition to a home-based strengthening regiment both for health and more importantly for her work requirements. Otherwise I would suspect the symptoms will continue to return. I do not see any indication for injections at this time. History of Present Illness Reason for Consultation: Right sciatica Attending Physician: Rod Bhakta MD History of Present Illness This is a very pleasant 48-year-old female presents with back and right leg pain. She notes a history of intermittent back and leg pain. She does work as a BEHAVIORAL HEALTH COUNSELOR. This does require significant physical activity. This morning she states her symptoms have improved. She does describe the pain involving the lumbosacral junction rating into the right buttock posterior thigh and occasionally to the foot. She has been up and ambulating. Allergies Allergy/AdvReac Type Severity Reaction Status Date / Time hydromorphone Allergy Severe SHOCK.ITCHI Verified 06/25/24 00:57 NG morphine Allergy Intermediate HIVES-CAN Verified 06/25/24 00:57 TAKE TYL #3 W/O RXN nitrofurantoin Allergy Unknown MACROBID Verified 06/25/24 00:57 Sulfa (Sulfonamide AdvReac Mild GI Verified 06/25/24 00:57 Antibiotics) INTOLERANCE Home Medications Medication Instructions Recorded Confirmed Type bupropion HCl 200 mg tablet,12 hr 200 mg PO QAM 06/25/24 06/25/24 History sustained-release estradiol 0.05 mg/24 hr semiweekly 0.05 mg topical 2XWK 06/25/24 06/25/24 Histo ry transdermal patch fluoxetine 40 mg capsule 40 mg PO QAM 06/25/24 06/25/24 History meloxicam 7.5 mg tablet 7.5 mg PO DAILY PRN Pain 06/25/24 06/25/24 History mirabegron 50 mg tablet,extended 50 mg PO QAM 06/25/24 06/25/24 History release 24 hr (Myrbetriq) pentosan polysulfate sodium 100 mg 100 mg PO BID 06/25/24 06/25/24 History capsule (Elmiron) phenazopyridine 200 mg tablet 200 mg PO TID PRN Pain 06/25/24 06/25/24 History (Pyridium) quetiapine 50 mg tablet (Seroquel) 50 mg PO HS 06/25/24 06/25/24 History solifenacin 10 mg tablet (Vesicare) 10 mg PO QAM 06/25/24 06/25/24 History valacyclovir 1 gram tablet 2,000 mg PO BID PRN flare ups 06/25/24 06/25/24 History (Valtrex) Patient History Medical History (Updated 06/26/24 @ 10:35 by Steven Alegria DO) Partial small bowel obstruction Hiatal hernia IBS (irritable bowel syndrome) Surgical History History of cholecystectomy H/O umbilical hernia repair Status post breast reduction H/O LEEP H/O dilation and curettage Family History Father Hypertension Diabetes Mother Hypertension Social History Smoking Status: Never smoker Do You Dip or Chew Tobacco: No; Hx Alcohol Use: No Hx Substance Use: Yes Last Used Substance: Hours (ago) Last Used Substance Other:: 1700 06/24/24 Substance Use Type Other:: medical marijuana Preferred Language: Somali Communication Ability: Effective Visual Impairment: No Limitations Hearing Ability: Normal Transit Bus Driver Required: No Beliefs That Will Affect Care: None Current Living Situation: Significant Other Feels Safe at Home: Yes Safety Concerns: Feels Safe At This Time Assistive Devices: Contacts and Glasses Physical Exam Physical Exam: On exam patient is in the chair at bedside. She is able to stand without difficulty. She has no abnormal skin markings. She is no tenderness palpation of the trochanteric region. She has good strength testing otherwise. Results & Data Vital Signs (Past 12 Hours) Vital Signs Temp Pulse Resp BP Pulse Ox O2 Del Method 06/26/24 07:11 36.7 C 82 16 100/65 96 Room Air
--- NOTE | 2024-06-26 15:57 | Discharge Summary ---
Discharge Summary Date of Service June 26, 2024 Principal Dx & Hospital Course #1 = Principal Diagnosis (1) Acute right lumbar radiculopathy: Intractable back pain, with right sided sciatica Lumbar spine MRI: 1. Mild disc degeneration at L1-2, L3-4, L4-5 and L5-S1 with annular disc bulging flattening the ventral thecal sac and causing a mild subarticular recess stenosis at L3-4 and L4-5 without evidence of neural impingement. 2. There is no spinal canal stenosis. 3. There is a mild left L3-4 neural foraminal stenosis without evidence of neural impingement. 4. No evidence of fracture, infection, tumor or arachnoiditis. added Prednisone 40mg po daily, Flexeril PRN, Warm compress Ortho spine consulted 06/26 Back pain improved compared to Admission No leg weakness or numbness Ambulating with no issues Patient requesting to go home Evaluated by orthopedic spine surgeon Dr. Alegria, MRI lumbar spine demonstrating evidence of modest facet hypertrophy most impressive at L4/L5, recommend outpatient physical therapy Discharge plan: Prednisone 40 mg p.o. daily x 2 days As needed Tylenol, Flexeril, oxycodone Please facilitate outpatient physical therapy Chest Pain, likely GERD Trop x 2 negative EKG no acute ischemia CT chest: no acute PE, (+) The heart is normal in size with trace pericardial effusion. Maalox, Protonix given resolved echocardiogram in 1 month to re-evaluate trace pericardial effusion GERD stable off maintenance medications Mood disorder stable on regimen DC home PCP follow-up in 1 week plan of care discussed with patient in detail all questions answered she is understanding, agreeable, comfortable with the plan of care Notes For Next Care Provider Medication Changes From Visit Prednisone-steroid for severe back pain Tylenol-for study pain control Flexeril-muscle relaxant Oxycodone-narcotic, as needed for severe pain, no driving while taking this medication Admission HPI Per Admitting Provider History obtained from patient, family, and records. Medical history significant for GERD, interstitial cystitis, mood disorder. 2 weeks ago, patient fell outside while walking on a curb. Achy neck pain without unusual arm or leg weakness. Improved neck pain after outpatient chiropractor consultation. Patient was bathing her pet cat in the bathtub last night when she experienced sudden onset achy mid to low back pain with radiation to the right lower extremity. No fever, no chills, no incontinence. [place] like she was going to pass out from the pain. Intractable discomfort at the ER. Medical History as above Surgical History : Colposcopy, D&C, oviduct fulguration, cholecystectomy, reduction mammoplasty, hernia repair Family History : DM, heart disease hypertension, mood disorder Personal/Social history : Non-smoker, no EtOH intake, caregiver Admission Exam Per Admitting Provider GENERAL: Slightly uncomfortable, no respiratory distress SKIN: Normal color, warm HEENT: [place] palpebral conjunctivae, no ptosis, dry buccal mucosa NECK : Supple, no tenderness CHEST : CTA, no tenderness HEART : RRR, no obvious murmurs BACK : Low back tenderness, negative SLR ABDOMEN: Some distention, nontender EXTREMITIES : No LE swelling/tenderness, no other conspicuous deformities noted NEUROLOGIC : Coherent, no facial asymmetry, no other gross focality Discharge Exam General- oriented x 3, not in distress, speaks in sentences with no effort or accessory muscle use Eyes- anicteric Neck- no JVD Lungs- clear breath sounds bilaterally, no rales/wheezes Heart- normal rate, regular rhythm; no murmurs Abdomen- normal bowel sounds, nondistended, soft, nontender Extremities- no pretibial edema, no calf tenderness Back-minimal tenderness at the lumbar spine area Neuro- alert, oriented x 3; no gross focal neurologic deficits Skin- warm & dry Updated Medication List Medication Instructions Recorded Confirmed Type bupropion HCl 200 mg tablet,12 hr 200 mg PO QAM 06/25/24 06/25/24 History sustained-release estradiol 0.05 mg/24 hr semiweekly 0.05 mg topical 2XWK 06/25/24 06/25/24 History transdermal patch fluoxetine 40 mg capsule 40 mg PO QAM 06/25/24 06/25/24 History meloxicam 7.5 mg tablet 7.5 mg PO DAILY PRN Pain 06/25/24 06/25/24 History mirabegron 50 mg tablet,extended 50 mg PO QAM 06/25/24 06/25/24 History release 24 hr (Myrbetriq) pentosan polysulfate sodium 100 mg 100 mg PO BID 06/25/24 06/25/24 History capsule (Elmiron) phenazopyridine 200 mg tablet 200 mg PO TID PRN Pain 06/25/24 06/25/24 History (Pyridium) quetiapine 50 mg tablet (Seroquel) 50 mg PO HS 06/25/24 06/25/24 History solifenacin 10 mg tablet (Vesicare) 10 mg PO QAM 06/25/24 06/25/24 History valacyclovir 1 gram tablet 2,000 mg PO BID PRN flare ups 06/25/24 06/25/24 History (Valtrex) acetaminophen 325 mg tablet 650 mg (2 x 325 mg) PO TID #15 tabs 06/26/24 Rx cyclobenzaprine 5 mg tablet 5 mg PO BID PRN muscle spasm #10 06/26/24 Rx tabs oxycodone 5 mg tablet 5 mg PO QID PRN severe pain #6 tabs 06/26/24 Rx prednisone 20 mg tablet 40 mg (2 x 20 mg) PO DAILY 2 days 06/26/24 Rx #4 tabs Hospital Stay Data Consultations 06/25/24 00:56 ED Decision to Admit Stat 06/25/24 08:17 Consult Orthopedic Surgery Routine Diagnostic Imagining Performed Laboratory Results WBC 6.41 K/ul (4.8-10.8) 06/24/24 20:54 RBC 4.56 M/uL (4.20-5.40) 06/24/24 20:54 Hgb 13.0 g/dl (12.0-16.0) 06/24/24 20:54 Hct 39.1 % (37.0-47.0) 06/24/24 20:54 MCV 85.7 fL (80.0-100.0) 06/24/24 20:54 MCH 28.5 pg (25.0-34.0) 06/24/24 20:54 MCHC 33.2 g/dL (32.0-36.0) 06/24/24 20:54 RDW Std Deviation 40.6 fL (36.4-46.3) 06/24/24 20:54 RDW Coeff of Lázaro 13.0 % (11.5-14.5) 06/24/24 20:54 Plt Count 212 K/uL (130-400) 06/24/24 20:54 MPV 11.2 fL (9.4-12.4) 06/24/24 20:54 Immature Gran % (Auto) 0.3 % 06/24/24 20:54 Neut % (Auto) 62.5 % 06/24/24 20:54 Lymph % (Auto) 26.1 % 06/24/24 20:54 [place] % (Auto) 8.0 % 06/24/24 20:54 Eos % (Auto) 2.2 % 06/24/24 20:54 Baso % (Auto) 0.9 % 06/24/24 20:54 Neut # (Auto) 4.01 K/uL (1.40-6.50) 06/24/24 20:54 Lymph # (Auto) 1.67 K/uL (1.20-3.40) 06/24/24 20:54 [place] # (Auto) 0.51 K/uL (0.11-0.59) 06/24/24 20:54 Eos # (Auto) 0.14 K/uL (0.00-0.50) 06/24/24 20:54 Baso # (Auto) 0.06 K/uL (0.00-0.20) 06/24/24 20:54 Immature Gran # (Auto) 0.02 K/uL (0.01-0.20) 06/24/24 20:54 APTT 25 Seconds (21-31) 06/25/24 06:16 PTT Ratio 0.9 06/25/24 06:16 Sodium 139 mmol/L (136-145) 06/25/24 06:16 Potassium 3.8 mmol/L (3.5-5.1) 06/25/24 06:16 Chloride 106 mmol/L (98-107) 06/25/24 06:16 Carbon Dioxide 29 mmol/L (21-32) 06/25/24 06:16 Anion Gap 4 (3-11) 06/25/24 06:16 BUN 14 mg/dl (6-23) 06/25/24 06:16 Creatinine 0.83 mg/dl (0.6-1.2) 06/25/24 06:16 Est Cr Clr Drug Dosing 88.7 ml/min 06/25/24 06:16 Est GFR ( Amer) 97.3 ml/min 06/25/24 06:16 Est GFR (Non-Af Amer) 84.0 ml/min 06/25/24 06:16 BUN/Creatinine Ratio 16.9 (10-20) 06/25/24 06:16 Glucose 107 mg/dl (70-99(Fasting)) H 06/25/24 06:16 Calcium 9.4 mg/dl (8.6-10.3) 06/25/24 06:16 Magnesium 1.7 mg/dl (1.7-2.4) 06/25/24 06:16 Total Bilirubin 0.5 mg/dl (0.2-1.0) 06/25/24 06:16 AST 18 U/L (13-39) 06/25/24 06:16 ALT 11 U/L (7-52) 06/25/24 06:16 Alkaline Phosphatase 55 U/L (34-104) 06/25/24 06:16 Total Creatine Kinase 71 U/L (26-192) 06/24/24 20:54 Troponin I High Sens < 2.3 pg/ml (0-14) 06/25/24 08:36 Total Protein 6.3 gm/dl (6.0-8.3) 06/25/24 06:16 Albumin 4.0 gm/dl (3.4-5.0) 06/25/24 06:16 Globulin 2.3 gm/dl (2.5-4.0) L 06/25/24 06:16 Albumin/Globulin Ratio 1.7 (0.9-2) 06/25/24 06:16 Lipase 5 U/L (11-82) L 06/25/24 06:16 HCG, Qual Negative (Negative) 06/24/24 20:54 Urine Color Yellow 06/25/24 01:00 Urine Appearance Clear (Clear) 06/25/24 01:00 Urine pH 6.0 (4.5-7.5) 06/25/24 01:00 Ur Specific [place] 1.013 (1.000-1.030) 06/25/24 01:00 Urine Protein Negative (Negative) 06/25/24 01:00 Urine Glucose (UA) Negative (Negative) 06/25/24 01:00 Urine Ketones Negative (Negative) 06/25/24 01:00 Urine Blood Negative (Negative) 06/25/24 01:00 Urine Nitrite Negative (Negative) 06/25/24 01:00 Urine Bilirubin Negative (Negative) 06/25/24 01:00 Urine Urobilinogen Negative (Negative) 06/25/24 01:00 Ur Leukocyte Esterase Negative (Negative) 06/25/24 01:00 Impressions Lumbar Spine X-Ray 06/24/24 20:42 XR lumbar spine min 4V routine HISTORY: 48 years-old Female R sided low back pain acute low back pain COMPARISON: MRI lumbar spine 06/24/2024 TECHNIQUE: 5 views of the lumbar spine FINDINGS: No acute fracture or subluxation. Minimal degenerative changes with mild levoscoliosis. Cholecystectomy. Moderate to extensive colonic fecal retention. IMPRESSION: 1. No acute fracture or subluxation. 2. Moderate to extensive colonic fecal retention ACT 112: Negative or not required by law. The above report was generated using voice recognition software. It may contain grammatical, syntax or spelling errors. Electronically signed by: John Gomez M.D. 06/25/2024 7:55 AM Lumbar Spine MRI 06/24/24 21:22 Exam(s): MRI L SPINE Without Contrast EXAM: MR Lumbar Spine Without Intravenous Contrast CLINICAL HISTORY: Reason for exam: R low back pain, R leg weakness. TECHNIQUE: Magnetic resonance images of the lumbar spine without intravenous contrast in multiple planes. COMPARISON: Prior plain film of his lumbar spine from June 24, 2024. FINDINGS: Vertebrae: There are 5 lumbar type vertebral bodies with a mild generalized curve to the left and normal lumbar lordosis. There is normal vertebral body alignment. The bone marrow signal is normal. No acute fracture. Spinal cord: The conus is normal in size and shape and signal characteristics, terminating at L1-L2. Soft tissues: Moderate atrophy of the iliopsoas, paraspinous intraspinous musculature. The aorta and IVC flow voids are intact. The visualized kidneys are unremarkable. DISCS/SPINAL CANAL/NEURAL FORAMINA: L1-L2: There is mild disc degeneration with annular disc bulge asymmetric to the right flattening the ventral thecal sac. L2-L3: Unremarkable. No significant disc disease. No stenosis. L3-L4: There is mild disc degeneration with annular disc bulge asymmetric to the left causing a mild left subarticular recess stenosis with disc extending into the left neural foramen causing mild stenosis without evidence of neural impingement. L4-L5: There is mild disc degeneration with annular disc bulge causing a mild subarticular recess stenosis with disc extending to the neuroforamina without evidence of impingement or significant stenosis. L5-S1: There is mild disc degeneration with annular disc bulge asymmetric to the right flattening the ventral thecal sac. IMPRESSION: 1. Mild disc degeneration at L1-2, L3-4, L4-5 and L5-S1 with annular disc bulging flattening the ventral thecal sac and causing a mild subarticular recess stenosis at L3-4 and L4-5 without evidence of neural impingement. 2. There is no spinal canal stenosis. 3. There is a mild left L3-4 neural foraminal stenosis without evidence of neural impingement. 4. No evidence of fracture, infection, tumor or arachnoiditis. Electronically signed by: Shira Tadeo MD 06/25/24 01:08 AM Chest X-Ray 06/25/24 05:05 XR chest 1V portable HISTORY: 48 years-old Female cp acute chest pain and shortness of breath COMPARISON: CTA chest of same day TECHNIQUE: AP view of the chest FINDINGS: Cardiomediastinal and hilar silhouettes are within normal limits. No pneumothorax, or pleural effusion. The bones appear grossly intact. IMPRESSION: No acute process. ACT 112: Negative or not required by law. The above report was generated using voice recognition software. It may contain grammatical, syntax or spelling errors. Electronically signed by: John Gomez M.D. 06/25/2024 8:05 AM Chest CTA 06/25/24 05:50 CT angio chest PE protocol CT DOSE: 393.8 mGy.cm HISTORY: 48 years-old Female with cp. Acute chest pain TECHNIQUE: Multiple CTA images of the chest were obtained after the intravenous administration of 120 ml Optiray. Coronal and sagittal MIPS were obtained from the axial data set and were submitted for review. All measurements were obtained according to NASCET criteria. A dose lowering technique was utilized adhering to the principles of ALARA. COMPARISON: Chest radiograph of same day FINDINGS: CTA: The heart is normal in size with trace pericardial effusion. Unremarkable thoracic aorta. Unremarkable pulmonary artery. No pulmonary emboli are identified. CT CHEST: Unremarkable thyroid. No adenopathy. No pneumothorax, pleural effusion, airspace consolidation or pulmonary edema. No suspicious pulmonary nodules or masses. Central airways are patent. No acute upper abdominal abnormality. Unremarkable soft tissues. No acute fracture. IMPRESSION: Unremarkable CTA of the chest. ACT 112: Negative or not required by law. The above report was generated using voice recognition software. It may contain grammatical, syntax or spelling errors. Electronically signed by: John Gomez M.D. 06/25/2024 8:26 AM 06/24/24 21:22 MR lumbar spine wo con Stat 06/25/24 05:50 CT angio chest PE protocol Stat Pending Results Patient Have Any Pending Studies at Discharge: No Discharge Instructions Given to Patient (Per Discharging Provider) PLEASE REFER TO YOUR NEW MEDICATION LIST AND FOLLOW INSTRUCTIONS CAREFULLY. YOUR NEW MEDICATIONS INCLUDE: Prednisone-steroid for severe back pain Tylenol-for study pain control Flexeril-muscle relaxant Oxycodone-narcotic, as needed for severe pain, no driving while taking this medication PLEASE CALL YOUR PRIMARY CARE PHYSICIAN OR RETURN TO THE ER IF WITH WORSENING OF SYMPTOMS, INCLUDING Back pain, leg weakness or numbness, problems with ambulation, etc. FOLLOW UP WITH PRIMARY CARE PHYSICIAN In 1 week. The clinic will be calling you soon for the appointment schedule. Total Time Total Time Spent Total Time Spent (In Minutes): 45 minutes
== END 2024-06-26 14:30 | disposition home or self-care (01) | DRG 552 ==
LOC: ED 20:01 → 3W 20:01 → SUATTDRO 06-25 01:40 → 3W 06-25 02:09 → 2E 06-25 06:46 → 3N 06-25 15:57